=== PATIENT | female | born 1985 | race Caucasian/White ===

== ENCOUNTER 2019-06-03 15:22 | Emergency (ER) | payer SELFPAY ==
[2019-06-03 15:26] VITALS: BP 114/59; PULSE 82; RESP 16; TEMP 36.6; O2SAT 100
--- NOTE | 2019-06-03 15:41 | ED.GENADUL_ITS ---
Discharge Plan Discharge Details Chief Complaint: DentalOral Primary Care Provider: Gary Javier ED Provider: Ken Henley Home Meds and New Rx's Prescriptions: No Action methylphenidate HCl [Ritalin] 20 MG tablet 20 mg PO TID RF: 0 buspirone 15 mg Tablet 15 mg PO TID RF: 0 Medical Decision Making 34-year-old female with right lower dental pain, poor dentition, history of dental infections. She presents from home and is afebrile. She has tenderness to the right lower to bicuspid teeth. There is no evidence of buccal or lingual fluctuance. Patient given an inferior alveolar dental block, placed on penicillin, given tramadol as well for pain. She will follow-up with [facility]. She understands homecare as well as return precautions HPI General Mode of arrival: ambulatory . Date/Time Provider Initiated Documentation: 06/03/19 15:26 . Limitations to Documentation: no limitations . Information obtained by: patient . History of Present Illness 34 year old F presents to the emergency department with the chief complaint of Right lower tooth pain for 3 days time, described as moderate, Quality is described as dull and constant, and is localized to the mouth. Patient reports no radiation. Patient started experiencing this day(s) No relieving factors improve symptom(s), No exacerbating factors reported . Patient notes denies fever/chills. Patient did receive the following treatments prior to arrival, other Related Data Home Medications Medication Instructions Recorded Confirmed methylphenidate HCl [Ritalin] 20 mg PO TID 02/14/16 06/03/19 buspirone 15 mg PO TID 06/03/19 06/03/19 Allergies Allergy/AdvReac Type Severity Reaction Status Date / Time cephalexin monohydrate AdvReac Unknown Nausea Unverified 06/03/19 15:32 [From Keflex] ibuprofen AdvReac Unknown GI Unverified 06/03/19 15:32 BLEEDING/VOMITIN propoxyphene napsylate AdvReac Unknown Nausea Unverified 06/03/19 15:32 [From Darvocet-N] clonazepam [From Klonopin] AdvReac Panic Unverified 06/03/19 15:32 attack General Stated Complaint: DentalOral DEDE: 4 Review of Systems Narrative: No drooling, change to voice, fever, vomiting, shortness of breath. [facility] Medical History ADHD (01/11/95) BMI 38.0-38.9,adult Depression with anxiety fya antibody k antibody Family History Mother Hyperlipidemia Father Alcohol abuse recovering Sister No problems noted. Brother No problems noted. Social History Smoking/Tobacco Use Status: Current every day Tobacco Type: cigarettes Alcohol Intake: current Alcohol Intake frequency: a few times a month Substance use type: does not use Do you feel safe at home: Yes Do you feel safe in your relationship?: Yes Exam Narrative Exam Narrative: GEN: awake, alert, oriented 3. Pleasant, well groomed, interactive. HEAD: Normocephalic, atraumatic ENT: Mucous membranes moist, oropharynx with poor dentition throughout. Right lower bicuspids tender without significant fluctuance or swelling, TMs clear bilaterally, External ear exam unremarkable EYES: PERRL, EOMI NECK: Full ROM, no CHUY, no menigismus CHEST/RESP: Nontender, clear to auscultation bilateral, no wheeze/rhonchi/rales CARDIOVASCULAR: RRR, no murmur, rub ria. 2+ Rad pulse bilateral EXT: Full ROM, no edema, no rash Neuro: Grossly normal neurologic exam, conversant, interactive. Psych: Speech fluent, thoughts congruent, affect normal Course Vital Signs Vital signs: Vital Signs Temperature 36.6 C 06/03/19 15:26 Pulse 82 06/03/19 15:26 Respiratory Rate 16 06/03/19 15:26 Blood Pressure 114/59 L 06/03/19 15:26 Pulse Oximetry 100 06/03/19 15:26 Temperature 36.6 C 06/03/19 15:26 Temperature Source Temporal Artery Scan 06/03/19 15:26 Pulse 82 06/03/19 15:26 Respiratory Rate 16 06/03/19 15:26 Respiratory Effort Non-Labored 06/03/19 15:31 Blood Pressure 114/59 L 06/03/19 15:26 Blood Pressure Position Sitting 06/03/19 15:26 Pulse Oximetry 100 06/03/19 15:26 Oxygen Delivery Method Room Air 06/03/19 15:26 Oxygen Flow Rate 0 06/03/19 15:26 Pain Level 4 06/03/19 15:26 Procedures Nerve Block Nerve Block 1: Local Anesthetic: Lidocaine 1% Side: right Intraoral Nerve Block: inferior alveolar Procedure Successful: Yes Patient Tolerated Procedure: well
[2019-06-03] MEDS: Penicillin V POTASSIUM 500 MG TAB, 4 TABS/BTL PO (15:53)
[2019-06-03] MEDS: Bupivacaine 0.5% Pres-Free 30 ML VIAL (15:55)
== END 2019-06-03 16:00 | disposition home or self-care (01) ==
LOC: ER 15:58
PROVIDERS: Emergency Provider Emergency Medicine; PCP Family Medicine
DX: K08.89 Other specified disorders of teeth and supporting structures (principal)
CPT/HCPCS: 64400

== ENCOUNTER 2020-05-31 14:33 | Emergency (ER) | payer MEDICARE, MEDICAID, SELFPAY ==
[2020-05-31 14:40] VITALS: BP 96/64; PULSE 118; TEMP 36.7; O2SAT 99
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
[2020-05-31] MEDS: Acetaminophen 500 MG TAB 1000 MG PO (15:19)
--- NOTE | 2020-05-31 15:38 | DI.RAD_ITS ---
EXAM: XR KNEE RT 4V AP,LAT,LUNA,PAT CLINICAL HISTORY: lateral knee injury with medial pain TECHNIQUE: Four views COMPARISON: No exams were available for comparison FINDINGS: There is no evidence of fracture and there is no prominent joint effusion. There are no osteochondra l defects in the femoral condyles. Fibular head and neck appear unremarkable, given the history stat ed here. The bone density appears age appropriate. No osseous lesions. IMPRESSION: No fracture or joint effusion evident RADIATION DOSE DELIVERED: Four views total DLP
--- NOTE | 2020-05-31 16:04 | DI.VRAD_ITS ---
PROCEDURE INFORMATION: Exam: XR Left Knee Exam date and time: 05/31/2020 3:04 PM Age: 35 years old Clinical indication: Injury or trauma; Other: PT states pain/injury after playing with nephew; Blunt trauma; Knee; Right TECHNIQUE: Imaging protocol: XR Left knee. Views: 4 or more views. COMPARISON: No relevant prior studies available. FINDINGS: Bones/joints: Normal mineralization and alignment. No fracture, degenerative spur, osseous erosion, joint effusion, joint body or other deformity. Soft tissues: Normal. IMPRESSION: Normal. Dictated and Authenticated by: Jeb Benavidez MD. Ordering:MASON Guillory MD
[2020-05-31 16:21] VITALS: BP 104/70; PULSE 90; RESP 18; TEMP 36.6; O2SAT 100
== END 2020-05-31 16:36 | disposition home or self-care (01) ==
PROVIDERS: Emergency Provider Physician Assistant; PCP Nurse Practitioner Family
DX: S83.411A Sprain of medial collateral ligament of right knee, initial encounter (principal); X50.9XXA Other and unspecified overexertion or strenuous movements or postures, initial encounter; Y93.83 Activity, rough housing and horseplay
CPT/HCPCS: 29505; 81025; 99283; 73564; E0114; L1810

== ENCOUNTER 2020-10-20 15:57 | Outpatient (REF) | payer MEDICARE, MEDICAID, SELFPAY ==
--- NOTE | 2020-10-20 15:35 | VUL_PTH ---
PATIENT: Radha Hein LOC: [facility] U#:[id number] AGE/SX: 35/F ROOM: RE10/20/[address]: Zandra Berry DO : 1985 BED: DIS: 10/20/2020 SPEC #: [id number] RECD: 10/20/20 17:30 STATUS: [place] REQ #: [id number] MAURO: 10/20/20 15:[address]: Zandra Berry DEPT: Surgical Specimen RECD BY: Duyen Ramires ENTERED: 10/20/20 17:30 SP TYPE: VUL OTHR DR: Pily Lacy Tissues: 1 - VULVA BIOPSY Procedures: GROSS AND MICRO LEVEL 4 Comments: [id number]
== END 2020-10-20 15:58 | disposition home or self-care (01) ==
LOC: LBN 15:57
PROVIDERS: PCP Nurse Practitioner Family; Visit Provider Obstetrics & Gynecology
DX: A63.0 Anogenital (venereal) warts (principal); N90.89 Other specified noninflammatory disorders of vulva and perineum
CPT/HCPCS: 88305

== ENCOUNTER → 2021-08-30 13:39 | Outpatient (BNVA) | payer MEDICARE, MEDICAID, SELFPAY | PROVIDERS: PCP Nurse Practitioner Family; Referring Provider Nurse Practitioner Family; Visit Provider Psychiatry & Neurology Neurology | DX: R40.4 Transient alteration of awareness (principal); Z60.9 Problem related to social environment, unspecified | CPT/HCPCS: 99215 ==

== ENCOUNTER → 2021-10-11 08:20 | Outpatient (BNVA) | payer MEDICARE, MEDICAID, SELFPAY | PROVIDERS: PCP Nurse Practitioner Family; Referring Provider Nurse Practitioner Family; Visit Provider Psychiatry & Neurology Neurology | DX: R40.4 Transient alteration of awareness (principal); G43.109 Migraine with aura, not intractable, without status migrainosus; G43.009 Migraine without aura, not intractable, without status migrainosus; Z87.820 Personal history of traumatic brain injury | CPT/HCPCS: 99443 ==

== ENCOUNTER → 2021-11-22 07:34 | Outpatient (BNVA) | payer MEDICARE, MEDICAID, SELFPAY | PROVIDERS: PCP Nurse Practitioner Family; Referring Provider Nurse Practitioner Family; Visit Provider Psychiatry & Neurology Neurology | DX: R69 Illness, unspecified (principal) ==

== ENCOUNTER → 2021-11-23 07:26 | Outpatient (BNVA) | payer MEDICARE, MEDICAID, SELFPAY | PROVIDERS: PCP Nurse Practitioner Family; Referring Provider Nurse Practitioner Family; Visit Provider Psychiatry & Neurology Neurology | DX: R69 Illness, unspecified (principal) ==

== ENCOUNTER 2022-09-27 04:09 | Outpatient (CLI) | payer MEDICARE, MEDICAID, SELFPAY ==
--- NOTE | 2022-10-01 20:49 | PDOC.EEG_ITS ---
Neurology EEG EEG: [facility] Department of Neurology LONG-TERM AMBULATORY EEG REPORT Date of Recordin09/27/22 at 13:35:11 to 09/28/22 at 10:45:32 Interpreting Physician: Dr. Lisa Weiss PCP/Referring Provider: Pily Lacy [employer]LECT[employer] ENGINEERING [employer]RAFTSPERSON, Swetha Mahan NP Reason for study: Radha Hein is a 37 year-old woman with a history of spells for the last 10 years. Current Medications: Home Medications Medication Instructions Recorded Confirmed Type sumatriptan succinate 100 mg tablet See Rx Instructions PO .COMPLEX 10/11/21 10/11/21 Rx #12 tabs norelgestromin 150 mcg-e.estradiol 1 patch transdermal QWEEK #9 ea 11/03/21 Rx 35 mcg/24 hr weekly transderm patch (Xulane) METHODS: An 18-channel digitized electroencephalogram was recorded in the ambulatory setting with video. The 10/20 international system of electrode placement was used and bipolar and referential electrode montages were recorded. In addition to EEG the patient was monitored for EKG and by video. Activation procedures of photic stimulation and hyperventilation were performed if applicable. The duration of the recording was ~21 hours. DESCRIPTION OF EEG: Waking background activity: During maximal wakefulness a 10-Hz posterior background rhythm was present which was well-modulated, symmetrical, reactive to eye opening, and of moderate voltage. Faster frequencies were present in the bilateral anterior head regions. There was a normal anterior-posterior voltage gradient. Drowsy and sleeping background activity: During drowsiness, there was attenuation of the posterior dominant background rhythm and vertex waves. Normal stage II and III sleep was present with symmetrical sleep spindles, K- complexes, and vertex waves with slowing of the background rhythm to delta/theta frequencies. REM sleep manifested by rapid lateral eye movements and faster background rhythms was recorded. Arousal was unremarkable. Interictal abnormalities: none. Ictal findings: No events recorded. Activating Procedures: Photic stimulation was performed which produced a symmetrical posterior driving response at various flash frequencies. Hyperventilation was performed with moderate effort and produced no physiological slowing of the background. EKG: EKG revealed normal sinus rhythm. INTERPRETATION: This long-term EEG is normal during the awake and sleep states as well as during the activation procedures. PRIOR EEG: none CLINICAL CORRELATION: No focal regions of cerebral dysfunction or epileptiform activity was present. Epilepsy remains a clinical diagnosis and a normal EEG does not rule out epilepsy. Clinical correlation is advised. Lisa Weiss MD
== END 2022-09-27 04:10 | disposition home or self-care (01) ==
LOC: RT 04:09
PROVIDERS: PCP Nurse Practitioner Family; Visit Provider Psychiatry & Neurology Neurology
DX: R41.840 Attention and concentration deficit (principal); R68.89 Other general symptoms and signs
CPT/HCPCS: 94060; 94726; 94729; 95714; 95720

== ENCOUNTER 2023-08-21 11:20 | Emergency (ER) | payer MEDICARE, MEDICAID, SELFPAY ==
[2023-08-21 11:37] VITALS: BP 96/78; PULSE 90; RESP 17; O2SAT 98
--- NOTE | 2023-08-21 12:35 | ED.GENADUL_ITS ---
HPI General Date/Time Provider Initiated Documentation: 08/21/23 11:52 . HPI Narrative: 38 year-old female presents to ED today by POV/ambulating with a chief complaint of fall yesterday, to L knee with bruising. Quality described as pain with weight-bearing but able to walk, no radiation to knee buckling, numbness/tingling distal, gross deformity, hip pain. Severity is described as 5- 6/10. Palliating factors include nothing specific. Provoking factors include nothing specific- slipped on ice. Patient not anticoagulated. Related Data Home Medications Medication Instructions Recorded Confirmed norelgestromin 150 mcg-e.estradiol See Rx Instructions .Route 12/06/22 08/21/23 35 mcg/24 hr weekly transderm .COMPLEX #9 patches patch (Xulane) acetaminophen 500 mg capsule 1,000 mg (2 x 500 mg) PO Q6H PRN 08/21/23 acute pain #90 caps buspirone 10 mg tablet 10 mg BID 08/21/23 ibuprofen 400 mg tablet 400 mg PO Q6H PRN acute pain #90 08/21/23 tabs lamotrigine 150 mg tablet 150 mg PO DAILY 08/21/23 08/21/23 (Lamictal) Previous Rx's Medication Instructions Recorded norelgestromin 150 mcg-e.estradiol See Rx Instructions .Route 12/06/22 35 mcg/24 hr weekly transderm .COMPLEX #9 patches patch (Xulane) acetaminophen 500 mg capsule 1,000 mg (2 x 500 mg) PO Q6H PRN 08/21/23 acute pain #90 caps ibuprofen 400 mg tablet 400 mg PO Q6H PRN acute pain #90 08/21/23 tabs Allergies Allergy/AdvReac Type Severity Reaction Status Date / Time morphine Allergy Verified 10/11/21 12:51 cephalexin monohydrate AdvReac Unknown Nausea Verified 10/11/21 12:51 [From Keflex] ibuprofen AdvReac Unknown GI Verified 10/11/21 12:51 BLEEDING/VOMITIN propoxyphene napsylate AdvReac Unknown Nausea Verified 10/11/21 12:51 [From Darvocet-N] clonazepam [From Klonopin] AdvReac Panic Verified 10/11/21 12:51 attack fluoxetine [From Prozac] AdvReac uncontrolable Verified 10/11/21 12:51 rage General Stated Complaint: Orthopedic DEDE: 4 Review of Systems All systems reviewed & are unremarkable except as noted in HPI and below Exam Narrative Exam Narrative: GENERAL APPEARANCE: Well-nourished, non-toxic, awake and alert, atraumatic, no acute distress. SKIN: Warm, pink, dry, intact, without rashes/lesions/ulcerations. HEAD: Normocephalic, atraumatic, normal hair distribution for gender/age. EYES: Pupils PERRLA, EOMs intact without nystagmus, normal conjunctiva, no exudates on lids/lashes. ENT: Nares patent, no circumoral cyanosis, no facial swelling NECK: Supple, trachea midline, painless cervical ROM. LUNGS/CHEST: Non-labored respirations, normal A/P diameter, symmetrical expansion, no chest wall deformity HEART (CV/PV): No peripheral edema, no JVD. ABDOMEN: Soft, non-distended, no guarding. MSK: Normal ROM, no swelling/deformity to bilateral UEs or LEs, moving all extremities without weakness, no cyanosis, spine midline without tenderness, normal curvature. L LE: Mild swelling to the left knee, some bruising diffusely to the knee without crepitus, patella mobile, tib-fib stable, femur stable, Abelino negative, no laxity with varus valgus forces, nontolerant of Abelino NEURO: Mental Status AAOx4 - alert to person, place, time, events No facial droop, no forehead involvement. Motor: No focal weakness - strength 5/5 in bilateral UEs and LEs, proximal and distal, symmetric. Sensory: sensation intact to light touch globally. Gait normal: patient ambulated without ataxia into ED room. PSYCH: euthymic, cooperative, pleasant, appropriate speech Course Vital Signs Vital signs: Vital Signs Pulse 90 08/21/23 11:37 Respiratory Rate 17 08/21/23 11:37 Blood Pressure 96/78 L 08/21/23 11:37 Pulse Oximetry 98 08/21/23 11:37 Temperature Source Oral 08/21/23 11:37 Pulse 90 08/21/23 11:37 Respiratory Rate 17 08/21/23 11:37 Respiratory Effort Normal, Non-Labored 08/21/23 11:45 Blood Pressure 96/78 L 08/21/23 11:37 Blood Pressure Position Supine 08/21/23 11:37 Pulse Oximetry 98 08/21/23 11:37 Oxygen Delivery Method Room Air 08/21/23 11:37 Oxygen Flow Rate 0 08/21/23 11:37 Lab/Test Results Lab/Test Results: POC- Test(urine) Negative Medical Decision Making This dictation utilizes [id number] dictation software and may contain unedited grammatical errors. 38 y/o F presents to ED today with a chief complaint of fall last night, slipped on the ice with impact to L knee, R foot dominant, endorses swelling and bruising. Patient is able to weight-bear, not feeling instability. Patients' medical history: noncontributory. Family and social history: noncontributory. Pertinent exam findings / vital signs include L LE: Mild swelling to the left knee, some bruising diffusely to the knee without crepitus, patella mobile, tib- fib stable, femur stable, Abelino negative, no laxity with varus valgus forces, nontolerant of Abelino. Differential / pathologies of concern include fracture, sprain/strain, internal derangement of left knee, contusion. Diagnostic studies of: -X-ray left knee 4 view-no acute fracture seen. Interventions of: -Provided knee brace and crutches as well as prescriptions for Tylenol and Motrin. ED Course/Assessment/Plan: Counseled the patient on RICE therapy and therapeutic dosing Tylenol and ibuprofen as well as following up with orthopedics for persistent pain past 2 weeks as internal knee injury could not be ruled out at this visit. Findings not consistent with fracture or neurovascular compromise. Disposition of contusion of left knee. Patient verbalized understanding of the plan and return to ED criteria and engaged in shared decision making. Medical Records Medical records reviewed: Yes I reviewed the patient's medical records. Imaging Data Radiologic Study: Attestation: I personally reviewed and interpreted this imaging study as follows: Imaging: X-Ray Radiologist's impression: EXAM: XR KNEE LT 4V AP,LAT,LUNA,PAT CLINICAL HISTORY: L knee pain. TECHNIQUE: 2D digital imaging was performed of the left knee. Five images were obtained. Merchant,AP, lateral and PA tunnel views were obtained. COMPARISON: No priors for comparison. FINDINGS: BONES: No acute fracture is present. No bony destructive lesion is seen. JOINTS: The knee is normally aligned. No joint effusion is seen. No loose body. SOFT TISSUE: Normal. IMPRESSION: No acute fracture or dislocation. Quality:SDOH Health Related Social Needs: No Data to Display PFSH All Active Problems (Updated 08/21/23 @ 13:16 by HEMA Pleitez) Contusion of left knee (Acute) Contraception (Acute) Migraine headache without aura (Acute) Migraine headache with aura (Acute) Chronic headache (Acute) Nonspecific paroxysmal spell (Acute) Contraception (Acute) 02/24/2021 Rx for Xulane E faxed. Patient encouraged to come to [facility] to discuss control options Complete miscarriage (Acute) 11/01/2027 first trimester. At [facility]. 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 No D&C required. High risk social situations (Acute) Anxiety (Acute) Depressed (Acute) Medical History ADHD (01/11/95) BMI 38.0-38.9,adult Cognitive developmental delay Concussion Depression with anxiety Exertional asthma Meningitis Scoliosis Spontaneous Surgical History S/P spinal surgery s/p Story nick Family History Mother Hyperlipidemia Seizures Mental health problem Alcohol abuse Substance abuse Father Alcohol abuse recovering Paternal Grandmother Cancer Social History Smoking/Tobacco Use Status: Current every day Tobacco Type: cigarettes Smoking packs per day: 0.5 Smoking cigarettes per day: 10.0 Smoking risk assessment performed?: Yes Alcohol Intake: current Alcohol Intake frequency: a few times a month Drug use: Daily Substance use type: does not use and marijuana Household members: none Housing: house Number of Children: 6 current occupation: Unemployed Do you feel safe at home: Yes Do you feel safe in your relationship?: Yes Discharge Plan Disposition Patient Disposition: Home Discharge Details Clinical Impression: Contusion of left knee Primary Care Provider: Pily Lacy ED Provider: Hilton Hyman Home Meds and New Rx's Prescriptions: New acetaminophen 500 mg capsule 1,000 mg PO Q6H PRN (Reason: acute pain) Qty: 90 0RF ibuprofen 400 mg tablet 400 mg PO Q6H PRN (Reason: acute pain) Qty: 90 0RF Continued norelgestromin-ethin.estradiol [Xulane] 150-35 mcg/24 hr patch weekly See Rx Instructions .ROUTE .COMPLEX Qty: 9 5RF Dose Instruction: UNWRAP AND APPLY 1 PATCH TO SKIN EVERY WEEK FOR 3 WEEKS OF A 4 WEEK CYCLE Rx Instructions: UNWRAP AND APPLY 1 PATCH TO SKIN EVERY WEEK FOR 3 WEEKS OF A 4 WEEK CYCLE lamotrigine [Lamictal] 150 mg tablet 150 mg PO DAILY buspirone 10 mg tablet 10 mg BID Patient Comments: TAKE 1 TABLET BY MOUTH TWICE DAILY Discharge Instructions Instructions: Contusion in Adults (ED) Additional Instructions: You were seen in the emergency department for the contusion and bruising and fall to your left knee, there is no fracture seen on x-ray, this does not preclude they do not have an internal knee injury to a ligament or the meniscus. Regardless of possible internal knee injury you need to perform rest, ice, compression and elevation and take therapeutic dosings of Tylenol and ibuprofen and reevaluate yourself in about a week. Please use therapeutic dosing of Tylenol (acetamenophen) & Advil (ibuprofen) in an alternating fashion as follows: Take 1000mg of Tylenol every 6 hours without missing doses- that is 4 times per day. Custodial in between the Tylenol dosings, take 400-600mg of Advil also on a 6 hour schedule, that is also 4 times per day. The daily maximum dosing of Tylenol is 4000mg, and the daily maximum dosing of Advil is 2400mg. This is safe to do for weeks. Please note that some common cold medications & prescription pain medications may contain acetamenophen and you need to read OTC drug labels and factor that in to maximum daily dosings. I sent prescriptions for Tylenol and Motrin to your pharmacy, please use the crutches and knee brace as needed, if you continue to have pain past 1 to 2 weeks please try to follow-up with orthopedics for specialist evaluation. Referrals: Pily Lacy [Primary Care Provider] -
--- NOTE | 2023-08-21 12:41 | DI.RAD_ITS ---
Exam(s) XR KNEE LT 4V AP,LAT,LUNA,PAT EXAM: XR KNEE LT 4V AP,LAT,LUNA,PAT CLINICAL HISTORY: L knee pain. TECHNIQUE: 2D digital imaging was performed of the left knee. Five images were obtained. Merchant, AP, lateral and PA tunnel views were obtained. COMPARISON: No priors for comparison. FINDINGS: BONES: No acute fracture is present. No bony destructive lesion is seen. JOINTS: The knee is normally aligned. No joint effusion is seen. No loose body. SOFT TISSUE: Normal. IMPRESSION: No acute fracture or dislocation. DATA REPOSITORY: RADIATION DOSE DELIVERED:
[2023-08-21] MEDS: Acetaminophen 500 MG TAB 1000 MG PO (13:16)
[2023-08-21] MEDS: Ondansetron O.D.T. 4 MG TABEF PO (13:16)
[2023-08-21] MEDS: Ketorolac 10 MG TAB PO (13:16)
== END 2023-08-21 13:38 | disposition home or self-care (01) ==
PROVIDERS: Emergency Provider Physician Assistant; PCP Nurse Practitioner Family
DX: S80.02XA Contusion of left knee, initial encounter (principal); W00.0XXA Fall on same level due to ice and snow, initial encounter; Y93.01 Activity, walking, marching and hiking
CPT/HCPCS: 81025; 99284; 73564; 99283

== ENCOUNTER 2023-10-01 20:28 | Emergency (ER) | payer MEDICARE, MEDICAID, SELFPAY ==
[2023-10-01 20:38] VITALS: BP 126/54; PULSE 101; RESP 20; TEMP 36.6; O2SAT 97
--- NOTE | 2023-10-01 20:51 | W.ED.GENAD ---
Discharge Plan Disposition Patient Disposition: Home Condition: Stable Discharge Details Clinical Impression: Diarrhea Primary Care Provider: Velia Bagley ED Provider: Hilton Hyman Home Meds and New Rx's Prescriptions: New azithromycin 500 mg tablet 500 mg PO DAILY 3 Days Qty: 3 0RF Continued norelgestromin-ethin.estradiol [Xulane] 150-35 mcg/24 hr patch weekly See Rx Instructions .ROUTE .COMPLEX Qty: 9 5RF Dose Instruction: UNWRAP AND APPLY 1 PATCH TO SKIN EVERY WEEK FOR 3 WEEKS OF A 4 WEEK CYCLE Rx Instructions: UNWRAP AND APPLY 1 PATCH TO SKIN EVERY WEEK FOR 3 WEEKS OF A 4 WEEK CYCLE lamotrigine [Lamictal] 150 mg tablet 150 mg PO DAILY buspirone 10 mg tablet 10 mg BID Patient Comments: TAKE 1 TABLET BY MOUTH TWICE DAILY acetaminophen 500 mg capsule 1,000 mg PO Q6H PRN (Reason: acute pain) Qty: 90 0RF ibuprofen 400 mg tablet 400 mg PO Q6H PRN (Reason: acute pain) Qty: 90 0RF Discharge Instructions Instructions: Azithromycin (By mouth), Potassium Content of Foods List (ED), Acute Diarrhea (ED), Hypomagnesemia (ED) Additional Instructions: You were seen in the emergency department for your acute diarrhea for the past 6 days. Your laboratory workup shows no evidence for sepsis or systemic infection. It is reasonable to treat you with azithromycin for possible bacterial diarrhea. I have sent your prescription for antibiotics to [facility] in [place]. You had a mildly low potassium as well as magnesium likely due to your diarrhea but these should normalize with resolution of diarrhea and normal p.o. intake, make sure you are at home vitamin supplements contain some magnesium and potassium. Please return to the ER for any profound weakness, further GI losses, progressive dark or black or stools, developing fever despite treatment. Referrals: Velia Bagley [Primary Care Provider] - HPI General Date/Time Provider Initiated Documentation: 10/01/23 20:36. HPI Narrative: 38 year-old male presents to ED today by POV/ambulating with a chief complaint of diffuse abdominal cramping, diarrhea with onset 6 days ago. Quality described as intermittent abdominal cramping, mild nausea, no radiation to fever, vomiting, focal abdominal pain, shortness of breath, flank pain, dysuria- patient states she may have had one bout of very dark stool. Severity is described as 6-7/10. Palliating factors include nothing specific- no Imodium attempted. Provoking factors include possibly exacerbated by having some chicken. Patient not anticoagulated. Related Data Home Medications Medication Instructions Recorded Confirmed norelgestromin 150 mcg-e.estradiol See Rx Instructions .Route 12/06/22 08/21/23 35 mcg/24 hr weekly transderm .COMPLEX #9 patches patch (Xulane) acetaminophen 500 mg capsule 1,000 mg (2 x 500 mg) PO Q6H PRN 08/21/23 acute pain #90 caps buspirone 10 mg tablet 10 mg BID 08/21/23 ibuprofen 400 mg tablet 400 mg PO Q6H PRN acute pain #90 08/21/23 tabs lamotrigine 150 mg tablet 150 mg PO DAILY 08/21/23 08/21/23 (Lamictal) azithromycin 500 mg tablet 500 mg PO DAILY diarrhea 3 days #3 10/01/23 tabs Previous Rx's Medication Instructions Recorded norelgestromin 150 mcg-e.estradiol See Rx Instructions .Route 12/06/22 35 mcg/24 hr weekly transderm .COMPLEX #9 patches patch (Xulane) acetaminophen 500 mg capsule 1,000 mg (2 x 500 mg) PO Q6H PRN 08/21/23 acute pain #90 caps ibuprofen 400 mg tablet 400 mg PO Q6H PRN acute pain #90 08/21/23 tabs azithromycin 500 mg tablet 500 mg PO DAILY diarrhea 3 days #3 10/01/23 tabs Allergies Allergy/AdvReac Type Severity Reaction Status Date / Time morphine Allergy Verified 10/11/21 12:51 cephalexin monohydrate AdvReac Unknown Nausea Verified 10/11/21 12:51 [From Keflex] ibuprofen AdvReac Unknown GI Verified 10/11/21 12:51 BLEEDING/VOMITIN propoxyphene napsylate AdvReac Unknown Nausea Verified 10/11/21 12:51 [From Darvocet-N] clonazepam [From Klonopin] AdvReac Panic Verified 10/11/21 12:51 attack fluoxetine [From Prozac] AdvReac uncontrolable Verified 10/11/21 12:51 rage General Stated Complaint: Nausea/Vomit/Diar DEDE: 3 Review of Systems All systems reviewed & are unremarkable except as noted in HPI and below Exam Narrative Exam Narrative: GENERAL APPEARANCE: Well-nourished, non-toxic, awake and alert, atraumatic, no acute distress. SKIN: Warm, pink, dry, intact, without rashes/lesions/ulcerations. HEAD: Normocephalic, atraumatic, normal hair distribution for gender/age. EYES: Pupils PERRLA, EOMs intact without nystagmus, normal conjunctiva, no exudates on lids/lashes. ENT: Nares patent, no circumoral cyanosis, no facial swelling NECK: Supple, trachea midline, painless cervical ROM. LUNGS/CHEST: Non-labored respirations, normal A/P diameter, symmetrical expansion, no chest wall deformity HEART (CV/PV): Regular rate, R radial pulse 2+, no peripheral edema, no JVD. ABDOMEN: Normoactive bowel sounds, soft, non-distended, no guarding, no tenderness. MSK: Normal ROM, no swelling/deformity to bilateral UEs or LEs, moving all extremities without weakness, no cyanosis, spine midline without tenderness, normal curvature. NEURO: Mental Status AAOx4 - alert to person, place, time, events No facial droop, no forehead involvement. Motor: No focal weakness - strength 5/5 in bilateral UEs and LEs, proximal and distal, symmetric. Sensory: sensation intact to light touch globally. Gait normal: patient ambulated without ataxia into ED room. PSYCH: euthymic, cooperative, pleasant, appropriate speech Course Vital Signs Vital signs: Vital Signs Temperature 36.6 C 10/01/23 20:38 Pulse 101 H 10/01/23 20:38 Respiratory Rate 20 10/01/23 20:38 Blood Pressure 126/54 L 10/01/23 20:38 Pulse Oximetry 97 10/01/23 20:38 Temperature 36.6 C 10/01/23 20:38 Pulse 101 H 10/01/23 20:38 Respiratory Rate 20 10/01/23 20:38 Respiratory Effort Normal 10/01/23 20:45 Blood Pressure 126/54 L 10/01/23 20:38 Pulse Oximetry 97 10/01/23 20:38 Oxygen Delivery Method Room Air 10/01/23 20:38 Oxygen Flow Rate 0 10/01/23 20:38 Medical Decision Making This dictation utilizes [id number] dictation software and may contain unedited grammatical errors. 38 y/o F presents to ED today with a chief complaint of diarrhea for 6 days- no focal abdominal pain, denies fever, denies vomiting, has gotten progressively more liquid-like from loose stool, questions isolated dark stool, did have partial resolution then biphasic worsening. Patients' medical history: history of D&C. Family and social history: noncontributory. No recent antibiotic exposure Pertinent exam findings / vital signs include no focal abdominal tenderness, benign cardiopulmonary status, neuro intact, nontoxic. Differential / pathologies of concern include enteritis/colitis, infectious diarrhea, GI Bleeding, unlikely sepsis. Diagnostic studies of: -CBC, CMP, CRP/ESR, Lactate, Lipase, Mg++, Procalcitonin, UA. -lactate neg -CBC benign -CMP mild hypo-K+ -mild hypo-Mg++ -Lipase wnl -Procalcitonin neg Interventions of: -PO Magnesium, PO Potassium, 500mg Azithromycin. ED Course/Assessment/Plan: Patient presents with diarrhea for 6 days, did have a biphasic onset, reasonable to treat empirically for infectious diarrhea. No signs of sepsis, no leukocytosis, only mild hypomagnesemia and hypokalemia that would normalize with good p.o. intake. Provided supplementation here by p.o electrolytes as well as first dose of azithromycin sent and the rest of the sent to [facility] in [place]. Counseled the patient on strict return criteria for any failure to improve with treatment especially with further significant GI losses and any profound weakness, initiation of vomiting. Findings not consistent with GI bleeding or hemorrhage, anemia is not found on laboratory workup, there is no evidence of sepsis with a normal lactate and procalcitonin, only mild elevation of CRP, mild electrolyte disturbances likely due to GI losses. Disposition of Diarrhea. Patient verbalized understanding of the plan and return to ED criteria and engaged in shared decision making. Medical Records Medical records reviewed: Yes I reviewed the patient's medical records. Lab Data Lab results reviewed: Yes I reviewed the patient's lab results. Labs: Laboratory Tests Range/Units 10/01/23 10/01/23 21:02 21:07 WBC (4.4-10.8) 10^3/uL 8.39 RBC (3.93-5.22) 10^6/uL 4.01 Hgb (11.2-15.7) g/dL 13.2 Hct (36.0-46.0) % 38.4 MCV (80-95) fL 96 H MCH (27.0-33.0) pg 32.9 MCHC (32.0-36.0) % 34.4 RDW (11.7-14.6) % 12.4 Plt Count (130-400) 10^3/uL 215 MPV (8.0-11.0) fL 9.7 Immature Gran % 0.2 Neutrophils % 69.8 Lymphocytes % 20.0 Monocytes % 8.3 Eosinophils % 1.3 Basophils % 0.4 Nucleated RBC % (0.0-0.3) % 0.0 Absolute Neutrophils (1.2-6.7) 10^3/uL 5.85 Absolute Lymphocytes (1.2-3.4) 10^3/uL 1.68 Absolute Monocytes (0.1-0.8) 10^3/uL 0.70 Absolute Eosinophils (0.0-0.7) 10^3/uL 0.11 Absolute Basophils (0.0-0.2) 10^3/uL 0.03 ESR (0-20) mm/hr 18 VBG Lactate (0.6-1.4) mmol/L 1.1 Sodium (136-145) mmol/L 145 Potassium (3.5-5.1) mmol/L 3.4 L Chloride (98-107) mmol/L 110 H Carbon Dioxide (21.0-32.0) mmol/L 20.5 L Anion Gap (3-11) mmol/L 14.5 H BUN (7-18) mg/dL 11 Creatinine (0.55-1.02) mg/dL 0.7 Est GFR (CKD-EPI 2020) (mL/min/1.73m2) 114.16 Glucose (74-106) mg/dL 95 Calcium (8.5-10.1) mg/dL 8.6 Magnesium (1.8-2.4) mg/dL 1.7 L Total Bilirubin (0.2-1.0) mg/dL 0.5 AST (15-37) U/L 18 ALT (14-59) U/L 36 Alkaline Phosphatase (46-116) U/L 81 C-Reactive Protein (<or=0.5) mg/dL 1.82 H Total Protein (6.4-8.2) g/dL 7.3 Albumin (3.4-5.0) g/dL 3.4 Lipase (16-77) U/L 30 Procalcitonin ng/mL < 0.1 Urine Color (Yellow) Yellow Urine Clarity (Clear) Clear Urine pH (5-8) 5.5 Ur Specific [place] (1.005-1.025) >= 1.030 H Urine Protein (Neg-Trace) mg/dL 30 H Urine Ketones (Negative) mg/dL Negative Urine Blood (Negative) Trace-lysed H Urine Nitrite (Negative) Negative Urine Bilirubin (Negative) Negative Urine Urobilinogen (Up to 0.2) mg/dL 0.2 Ur Leukocyte Esterase (Negative) Negative Urine RBC (0-2) HPF 3-5 H Urine WBC (0-5) HPF 0-2 Ur Epithelial Cells (Negative) HPF Many Urine Crystals (Negative) HPF Negative Urine Bacteria (Negative) HPF Moderate Urine Mucus (Negative) Heavy Ur Culture Indicated? No/Sq. Contamination Urine Glucose (Negative) mg/dL Negative Quality:SDOH Health Related Social Needs: No Data to Display PFSH All Active Problems (Updated 10/01/23 @ 21:39 by HEMA Pleitez) Diarrhea (Acute) Contraception (Acute) Migraine headache without aura (Acute) Migraine headache with aura (Acute) Chronic headache (Acute) Nonspecific paroxysmal spell (Acute) Contraception (Acute) 02/24/2021 Rx for Xulane E faxed. Patient encouraged to come to [facility] to discuss control options Complete miscarriage (Acute) 11/01/2027 first trimester. At [facility]. 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 No D&C required. High risk social situations (Acute) Anxiety (Acute) Depressed (Acute) Medical History ADHD (01/11/95) BMI 38.0-38.9,adult Cognitive developmental delay Concussion Depression with anxiety Exertional asthma Meningitis Scoliosis Spontaneous Surgical History S/P spinal surgery s/p Story nick Family History Mother Hyperlipidemia Seizures Mental health problem Alcohol abuse Substance abuse Father Alcohol abuse recovering Paternal Grandmother Cancer Social History Smoking/Tobacco Use Status: Current every day Tobacco Type: cigarettes Smoking packs per day: 0.5 Smoking cigarettes per day: 10.0 Smoking risk assessment performed?: Yes Alcohol Intake: current Alcohol Intake frequency: a few times a month Drug use: Daily Substance use type: does not use and marijuana Household members: none Housing: house Number of Children: 6 current occupation: Unemployed Do you feel safe at home: Yes Do you feel safe in your relationship?: Yes
[2023-10-01 21:09] LABS: Abs Immature Grans 0.02 10^3/uL (0.0-0.06); Absolute Basophil Count 0.03 10^3/uL (0.0-0.2); Absolute Eosinophil Count 0.11 10^3/uL (0.0-0.7); Absolute Lymphocyte Count 1.68 10^3/uL (1.2-3.4); Absolute Neutrophil Count 5.85 10^3/uL (1.2-6.7); Basophils % 0.4; Eosinophils % 1.3; HCT 38.4 % (36.0-46.0); HGB 13.2 g/dL (11.2-15.7); Immature Grans % 0.2; Lactate 1.1 mmol/L (0.6-1.4); MCH 32.9 pg (27.0-33.0); MCHC 34.4 % (32.0-36.0); MCV 96 fL (80-95); MPV 9.7 fL (8.0-11.0); Monocytes % 8.3; Neutrophils % 69.8; Platelet Count 215 10^3/uL (130-400); RBC 4.01 10^6/uL (3.93-5.22); RDW 12.4 % (11.7-14.6); RDW-SD 43.7 fL; WBC 8.39 10^3/uL (4.4-10.8)
[2023-10-01 21:13] LABS: ESR 18 mm/hr (0-20)
[2023-10-01 21:18] LABS: Bilirubin Negative (Negative); Blood Trace-lysed (Negative); Clarity Clear (Clear); Glucose Negative (Negative); Ketones Negative (Negative); Leukocyte Esterase Negative (Negative); Nitrite Negative (Negative); Specific Gravity >= 1.030 (1.005-1.025); Urobilinogen 0.2 mg/dL (Up to 0.2); pH 5.5 (5-8)
[2023-10-01 21:27] LABS: WBC 0-2 HPF (0-5)
[2023-10-01 21:28] LABS: ALT 36 U/L (14-59); AST 18 U/L (15-37); Albumin 3.4 g/dL (3.4-5.0); Alkaline Phosphatase 81 U/L (46-116); Anion Gap 14.5 mmol/L (3-11); BUN 11 mg/dL (7-18); Bilirubin, Total 0.5 mg/dL (0.2-1.0); C-Reactive Protein 1.82 mg/dL (<or=0.5); CO2 20.5 mmol/L (21.0-32.0); CREATININE 0.7 mg/dL (0.55-1.02); Calcium 8.6 mg/dL (8.5-10.1); Chloride 110 mmol/L (98-107); Estimated GFR 114.16 (mL/min/1.73m2); Glucose 95 mg/dL (74-106); Lipase 30 U/L (16-77); Magnesium 1.7 mg/dL (1.8-2.4); Potassium 3.4 mmol/L (3.5-5.1); Sodium 145 mmol/L (136-145); Total Protein 7.3 g/dL (6.4-8.2)
[2023-10-01 21:28] LABS: Bacteria Moderate HPF (Negative); C & S Indicated? No/Sq. Contamination; Crystals Negative HPF (Negative); Epithelial Cells Many HPF (Negative); Mucus Heavy (Negative)
[2023-10-01] MEDS: Magnesium Oxide 400 MG TAB PO (21:52)
[2023-10-01] MEDS: Azithromycin 250 MG TAB 500 MG PO (21:52)
[2023-10-01] MEDS: Potassium Chloride 20 MEQ TABCR 40 MEQ PO (21:52)
[2023-10-01 21:57] LABS: Procalcitonin < 0.1 ng/mL
== END 2023-10-01 21:55 | disposition home or self-care (01) ==
PROVIDERS: Emergency Provider Physician Assistant; PCP Nurse Practitioner Family
DX: R19.7 Diarrhea, unspecified (principal); R10.9 Unspecified abdominal pain; F17.210 Nicotine dependence, cigarettes, uncomplicated
CPT/HCPCS: 80053; 83690; 84145; 85652; 99283; 81003; 81015; 83605; 83735; 85025; 86140

== ENCOUNTER 2024-08-17 17:12 | Emergency (ER) | payer MEDICARE, MEDICAID, SELFPAY ==
[2024-08-17 17:17] VITALS: BP 133/70; PULSE 98; RESP 22; TEMP 36.3; O2SAT 98
[2024-08-17 17:22] VITALS: BP 133/70; PULSE 98; RESP 22; TEMP 36.3; O2SAT 98
--- NOTE | 2024-08-17 17:35 | W.ED.GENAD ---
Discharge Plan Disposition Patient Disposition: Home Condition: Good Discharge Details Clinical Impression: Viral respiratory illness Primary Care Provider: Velia Bagley ED Provider: Ani Jacques Home Meds and New Rx's Prescriptions: Continued norelgestromin-ethin.estradiol [Xulane] 150-35 mcg/24 hr patch weekly 1 patch transdermal Q7D Qty: 9 5RF lamotrigine 200 mg tablet 200 mg PO DAILY Patient Comments: TAKE ONE TABLET BY MOUTH AT BEDTIME buspirone 10 mg tablet 10 mg PO BID Patient Comments: TAKE 1 TABLET BY MOUTH TWICE DAILY acetaminophen 500 mg capsule 1,000 mg PO Q6H PRN (Reason: acute pain) Qty: 90 0RF ibuprofen 400 mg tablet 400 mg PO Q6H PRN (Reason: acute pain) Qty: 90 0RF Discharge Instructions Additional Instructions: Please give [facility] a call first thing Monday to schedule follow-up appointment. Your chest x-ray was negative, no signs of pneumonia at this time. Continue using your albuterol inhaler 4 puffs every 4-6 hours using spacer as needed for shortness of breath/wheezing. You may use the new mometasone inhaler 1 puff twice a day; this is a controller inhaler and should be used with the spacer as well. Your symptoms today are most consistent with a viral illness. Please stay well hydrated, drinking plenty of fluids throughout the day. Add in electrolyte drinks as well. Chicken soup is another good option, as it contains helpful salts. You may use ibuprofen 800 mg every 8 hours and tylenol 1000 mg every 8 hours as needed for fever /chills or body aches. Get plenty of rest. Practice good handwashing and wear a mask in public if you are coughing to avoid spreading illness to others. Return to emergency care if you develop difficulty breathing, chest pains, worsening of cough or fever after initial improvement, or if you are very worried and need to be rechecked again immediately. Referrals: Velia Bagley [Primary Care Provider] - [facility] General Date/Time Provider Initiated Documentation: 08/17/24 17:22. HPI Narrative: Radha is a 39 year old female who presents to the emergency department today for evaluation of productive cough accompanied by shortness of breath/wheeze, sore throat, body aches, decreased appetite/nausea. She reports symptoms started day before yesterday, shortness of breath has increased despite use of inhaler. She reports that couple weeks ago she got over a GI illness, but then was exposed to someone with respiratory symptoms a few days prior to onset of her symptoms. She is supposed to take a controller inhaler, but has run out. She denies recorded fevers, episodes of passing out, congestion, chest pain, vomiting, change in bowel or bladder function. She admits to smoking. Denies history of diabetes, immunocompromise, cardiac disease, or antibiotic resistant infections past medical history is significant for asthma, migraine headaches, anxiety/depression, bipolar, EtOH abuse, ADHD. Physical exam remarkable for increased work of breathing, patient has 2-3 word dyspnea. Diminished lung sounds throughout. Normal heart sounds. Moving all extremities. She is alert and oriented, appropriately answering questions. No cyanosis noted. D/dx includes but is not limited to: Viral illness, asthma exacerbation, pneumonia. No red flags concerning for serious systemic illness requiring blood work or cultures. Vital signs not concerning for sepsis. I independently interpreted the following tests: Chest x-ray unremarkable, no obvious infiltrates noted. This was confirmed by radiologist. COVID/flu negative. While in the emergency department, Radha received 2 DuoNebs with good improvement of symptoms. Dyspnea and wheezing has resolved. She now has easy work of breathing, says she is feeling significantly better. Tylenol given for chills. Overall workup today reassuring. Likely viral illness with asthma exacerbation. As patient has history of bipolar, will initiate inhaled corticosteroids and have patient continue with albuterol inhaler at home. Spacer provided. Reviewed discharge instructions with patient, including symptomatic management and red flags indicating need for return to emergency care. She says that she has not been seen by PCP recently, recommend close follow-up for reevaluation. Related Data Home Medications ?Medication ?Instructions ?Recorded ?Confirmed acetaminophen 500 mg capsule 1,000 mg (2 x 500 mg) PO Q6H PRN 08/21/23 08/17/24 acute pain #90 caps buspirone 10 mg tablet 10 mg PO BID 08/21/23 08/17/24 ibuprofen 400 mg tablet 400 mg PO Q6H PRN acute pain #90 08/21/23 08/17/24 tabs norelgestromin 150 mcg-e.estradiol 1 patch transdermal Q7D #9 02/05/24 08/17/24 35 mcg/24 hr weekly transderm multiple units patch (Xulane) lamotrigine 200 mg tablet 200 mg PO DAILY 08/17/24 08/17/24 Previous Rx's ?Medication ?Instructions ?Recorded acetaminophen 500 mg capsule 1,000 mg (2 x 500 mg) PO Q6H PRN 08/21/23 acute pain #90 caps ibuprofen 400 mg tablet 400 mg PO Q6H PRN acute pain #90 08/21/23 tabs norelgestromin 150 mcg-e.estradiol 1 patch transdermal Q7D #9 02/05/24 35 mcg/24 hr weekly transderm multiple units patch (Xulane) Allergies Allergy/AdvReac Type Severity Reaction Status Date / Time morphine Allergy Itching Verified 08/17/24 17:19 cephalexin monohydrate (From AdvReac Unknown Nausea Verified 08/17/24 17:19 Keflex) ibuprofen AdvReac Unknown GI Verified 08/17/24 17:19 BLEEDING/VOMITIN propoxyphene napsylate (From AdvReac Unknown Nausea Verified 08/17/24 17:19 Darvocet-N) clonazepam (From Klonopin) AdvReac Panic Verified 08/17/24 17:19 attack fluoxetine (From Prozac) AdvReac uncontrolable Verified 08/17/24 17:19 rage General Stated Complaint: RespSymp DEDE: 4 Review of Systems Narrative: see HPI Exam Const General: cooperative, healthy appearing, well developed and well groomed Orientation: alert and oriented x3 HENMT Head: normal to inspection General nose exam: external nose normal Mouth: oral mucosae normal Resp Effort & Inspection: cough, tachypneic and other (2-3 word dyspnea) Auscultation: wheezes Cardio Rate: regular rate Rhythm: regular rhythm Skin General skin exam: no rashes or lesions noted Neuro General: patient alert, patient oriented x3, tone normal and moves all extremities Cognition: normal cognition Speech: speech normal Course Vital Signs Vital signs: Vital Signs Temperature 36.3 C L 08/17/24 17:17 Pulse 98 H 08/17/24 17:17 Respiratory Rate 22 08/17/24 17:17 Blood Pressure 133/70 08/17/24 17:17 Pulse Oximetry 98 08/17/24 17:17 Temperature 36.3 C L 08/17/24 17:22 Temperature Source Oral 08/17/24 17:22 Pulse 98 H 08/17/24 17:22 Respiratory Rate 22 08/17/24 17:22 Respiratory Effort Normal, Non-Labored 08/17/24 17:32 Respiratory Depth Normal 08/17/24 17:32 Blood Pressure 133/70 08/17/24 17:22 Blood Pressure Position Sitting 08/17/24 17:22 Pulse Oximetry 98 08/17/24 17:22 Oxygen Delivery Method Room Air 08/17/24 17:22 Oxygen Flow Rate 0 08/17/24 17:22 Medical Decision Making Quality:SDOH Health Related Social Needs: No Data to Display PFSH All Active Problems (Updated 08/17/24 @ 19:22 by Ani Pat) Viral respiratory illness (Acute) Contraception (Acute) Migraine headache without aura (Acute) Migraine headache with aura (Acute) Chronic headache (Acute) Nonspecific paroxysmal spell (Acute) Contraception (Acute) 02/24/2021 Rx for Xulane E faxed. Patient encouraged to come to [facility] to discuss control options Complete miscarriage (Acute) 11/01/2027 first trimester. At [facility]. 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 No D&C required. High risk social situations (Acute) Anxiety (Acute) Depressed (Acute) Medical History ADHD (01/11/95) BMI 38.0-38.9,adult Cognitive developmental delay Concussion Depression with anxiety Exertional asthma Meningitis Scoliosis Spontaneous Surgical History S/P spinal surgery s/p Story nick Family History Mother Hyperlipidemia Seizures Mental health problem Alcohol abuse Substance abuse Father Alcohol abuse recovering Paternal Grandmother Cancer Social History Smoking/Tobacco Use Status: Current every day Tobacco Type: cigarettes Smoking packs per day: 0.5 Smoking cigarettes per day: 10.0 Smoking risk assessment performed?: Yes Alcohol Intake: current Alcohol Intake frequency: a few times a month Drug use: Daily Substance use type: does not use and marijuana Household members: none Housing: house Number of Children: 6 current occupation: Unemployed Do you feel safe at home: Yes Do you feel safe in your relationship?: Yes
[2024-08-17] MEDS: Ondansetron O.D.T. 4 MG TABEF PO (17:44)
[2024-08-17] MEDS: Albuterol/Ipratropium 3 ML UPD VIAL UPD ×2 (17:44→19:07)
--- NOTE | 2024-08-17 17:45 | DI.RAD_ITS ---
Exam(s) XR CHEST 2V PA LATERAL EXAM: XR CHEST 2V PA LATERAL CLINICAL HISTORY: cough, SOB. TECHNIQUE: 2D digital imaging was performed. COMPARISON: Prior chest x-ray 08/10/2009 FINDINGS: 2 views: Ten rods are again noted in the thoracic-lumbar spine Heart size upper normal and the mediastinum is not widened. Lungs are clear. No infiltrates nor pleural effusions. IMPRESSION: No acute pulmonary findings.Story rods again noted in the spine. DATA REPOSITORY: RADIATION DOSE DELIVERED:
--- OUTSIDE RECORDS SUMMARY | 2024-08-17 18:11 | XMS_ITS ---
Author Organization Unknown Address [address] [place] [address] [phone] Phone Care Team Providers [employer] Name Role Phone KAREN Briggs Attending Unavailable ERIC RAMOS Primary Unavailable Social History Type Status Start Date End Date Code Code Syst em Smoking History Current some day smoker [id number] Sex Female Medications Medication Start Date End Date Route Frequency Dose Code Code System Medication Instructions Home Meds Acetaminophen 500MG Oral Tablet 11/01/2018 Unknown ORAL 1000 MILLIGRAMS RxNorm TAKE 1000 MILLIGRAMS ORAL Ibuprofen 600MG Oral Tablet 11/01/2018 Unknown ORAL 600 MILLIGRAMS RxNorm TAKE 600 MILLIGRAMS ORAL WELLBUTRIN XL 300MG ORAL TABLET, EX 11/01/2018 Unknown ORAL DAILY 300 MILLIGRAMS RxNorm TAKE 300 MILLIGRAMS ORAL DAILY Hospital Discharge Instructions Should you have any questions prior to discharge, please contact a member of your healthcare team. If you have left the hospital and have any questions, please contact your primary care physician. Reason For Referral No Data Found Allergies and Adverse Reactions Allergy Substance Reaction Severity Start Date Concern Status Code Code System CEFAZOLIN Moderate Active 2180 RxNorm IBUPROFEN Moderate Active 5640 RxNorm KEFLEX NAUSEA AND VOMITING (SNOMED-CT: null) Moderate Active 264936 RxNorm PROPOXYPHENE HCL Moderate Active Propoxyphene hcl Moderate Active Plan of Treatment No Data Found Encounters Encounter Diagnosis Start Date Code Code Sys tem Refusal of treatment by patient 08/06/2021 [id number] SNOMED-CT Personal Care Team Section Performer Name Performer Role Active Date Inactive Da te
[2024-08-17 18:14] VITALS: PULSE 70; RESP 14; O2SAT 99
[2024-08-17 18:22] VITALS: PULSE 77; RESP 16; O2SAT 99
[2024-08-17] MEDS: Mometasone 220 MCG 14 DOSE INHALER 1 PUFF IH (19:08)
[2024-08-17] MEDS: Acetaminophen 325 MG TAB 1000 MG PO (19:08)
[2024-08-17] MEDS: Inhaler, Assist Device 1 EACH MC (19:08)
[2024-08-17 19:19] VITALS: TEMP 36.8
[2024-08-17 19:37] VITALS: PULSE 76; RESP 18; O2SAT 99
[2024-08-18] MEDS: Mometasone 220 MCG 14 DOSE INHALER 1 PUFF IH (13:12)
--- NOTE | 2024-08-18 13:13 | NUR.NOTE ---
Nursing Note: Pt returned with friend to the ED unsure of how to use the asmanex inhaler. States as she tried per instructions, nothing was coming out. Respiratory called to assist with inhaler teaching but noted that there were only 2 doses left in current inhaler. Recommendation to give pt a new inhaler for home use. Dr. Alfonso consulted and verbal order received for new inhaler, which was dispensed to patient here.
== END 2024-08-17 19:34 | disposition home or self-care (01) ==
PROVIDERS: Emergency Provider Nurse Practitioner Family; PCP Nurse Practitioner Family
DX: J98.8 Other specified respiratory disorders (principal); B97.89 Other viral agents as the cause of diseases classified elsewhere; F17.210 Nicotine dependence, cigarettes, uncomplicated
CPT/HCPCS: 94640; 99284; 71046; 99283; J7620

== ENCOUNTER 2024-08-18 12:40 | Emergency (ER) | payer MEDICARE, MEDICAID, SELFPAY ==
[2024-08-18 12:42] VITALS: BP 110/69; PULSE 86; RESP 20; TEMP 36.7; O2SAT 98
--- NOTE | 2024-08-18 12:45 | RT.EKG_ITS ---
APPROVED REPORT Exam: Resting ECG Reason for Exam: SOB, Difficulty Breathing Patient Location: E HR:78 bpm ECG Measurements Heart Rate 78 AXIS PA 149 P 32 QRSd 79 QRS 66 QT 377 T 63 QTc 428 Conclusion Sinus rhythm...normal P axis, V-rate 60- 99 Low voltage, precordial leads...precordial leads <1.0mV
--- NOTE | 2024-08-18 13:09 | W.ED.GENAD ---
Discharge Plan Disposition Patient Disposition: Home Condition: Stable Discharge Details Clinical Impression: Acute respiratory infection Primary Care Provider: Velia Bagley ED Provider: Uriel Alfonso Home Meds and New Rx's Prescriptions: New prednisone 20 mg tablet 60 mg PO DAILY 4 Days Qty: 12 0RF doxycycline hyclate 100 mg tablet 100 mg PO BID Qty: 14 0RF Continued norelgestromin-ethin.estradiol [Xulane] 150-35 mcg/24 hr patch weekly 1 patch transdermal Q7D Qty: 9 5RF lamotrigine 200 mg tablet 200 mg PO DAILY Patient Comments: TAKE ONE TABLET BY MOUTH AT BEDTIME buspirone 10 mg tablet 10 mg PO BID Patient Comments: TAKE 1 TABLET BY MOUTH TWICE DAILY acetaminophen 500 mg capsule 1,000 mg PO Q6H PRN (Reason: acute pain) Qty: 90 0RF ibuprofen 400 mg tablet 400 mg PO Q6H PRN (Reason: acute pain) Qty: 90 0RF Discharge Instructions Additional Instructions: Continue to use your inhalers Follow-up with your primary care provider if you are not improving this week If you feel more ill, have severe worsening shortness of breath or new symptoms such as persistent vomiting return to the emergency department for reevaluation HPI General Mode of arrival: ambulatory. Date/Time Provider Initiated Documentation: 08/18/24 12:49. Limitations to Documentation: no limitations. Information obtained by: patient. History of Present Illness 39 year old F presents to the emergency department with the chief complaint of cough and dyspnea, described as moderate, Patient started experiencing this day(s) (4) and it has been constant. No relieving factors improve symptom(s), No exacerbating factors reported . Patient notes shortness of breath; denies chest pain. Related Data Home Medications ?Medication ?Instructions ?Recorded ?Confirmed acetaminophen 500 mg capsule 1,000 mg (2 x 500 mg) PO Q6H PRN 08/21/23 08/18/24 acute pain #90 caps buspirone 10 mg tablet 10 mg PO BID 08/21/23 08/18/24 ibuprofen 400 mg tablet 400 mg PO Q6H PRN acute pain #90 08/21/23 08/18/24 tabs norelgestromin 150 mcg-e.estradiol 1 patch transdermal Q7D #9 02/05/24 08/18/24 35 mcg/24 hr weekly transderm multiple units patch (Xulane) lamotrigine 200 mg tablet 200 mg PO DAILY 08/17/24 08/18/24 doxycycline hyclate 100 mg tablet 100 mg PO BID #14 tabs 08/18/24 prednisone 20 mg tablet 60 mg (3 x 20 mg) PO DAILY 4 days 08/18/24 #12 tabs Previous Rx's ?Medication ?Instructions ?Recorded acetaminophen 500 mg capsule 1,000 mg (2 x 500 mg) PO Q6H PRN 08/21/23 acute pain #90 caps ibuprofen 400 mg tablet 400 mg PO Q6H PRN acute pain #90 08/21/23 tabs norelgestromin 150 mcg-e.estradiol 1 patch transdermal Q7D #9 02/05/24 35 mcg/24 hr weekly transderm multiple units patch (Xulane) doxycycline hyclate 100 mg tablet 100 mg PO BID #14 tabs 08/18/24 prednisone 20 mg tablet 60 mg (3 x 20 mg) PO DAILY 4 days 08/18/24 #12 tabs Allergies Allergy/AdvReac Type Severity Reaction Status Date / Time morphine Allergy Itching Verified 08/18/24 12:41 cephalexin monohydrate (From AdvReac Unknown Nausea Verified 08/18/24 12:41 Keflex) ibuprofen AdvReac Unknown GI Verified 08/18/24 12:41 BLEEDING/VOMITIN propoxyphene napsylate (From AdvReac Unknown Nausea Verified 08/18/24 12:41 Darvocet-N) clonazepam (From Klonopin) AdvReac Panic Verified 08/18/24 12:41 attack fluoxetine (From Prozac) AdvReac uncontrolable Verified 08/18/24 12:41 rage General Stated Complaint: RespSymp DEDE: 3 Review of Systems All systems reviewed & are unremarkable except as noted in HPI and below Constitutional Constitutional: Denies chills, Denies fever(s) and Denies weakness Cardiovascular Cardiovascular: Denies chest pain and Reports dyspnea Respiratory Respiratory: Reports cough and Reports dyspnea Gastrointestinal Gastrointestinal: Denies abdominal pain, Denies nausea and Denies vomiting Neurologic Neurologic: Denies weakness Exam Const General: no acute distress Orientation: alert HENMT Head: normal to inspection Ears: external ears normal General nose exam: external nose normal Mouth: moist mucous membranes Eyes General: appearance normal, both eyes and all related structures Neck Neck: normal visual inspection Resp Effort & Inspection: normal respiratory effort, able to speak in complete sentences and cough Auscultation: wheezes Cardio Rate: regular rate Skin General skin exam: no rashes or lesions noted Neuro General: patient alert and patient oriented x3 Extrem General: normal to inspection Psych Mental Status: mental status grossly normal Course Vital Signs Vital signs: Vital Signs Temperature 36.7 C 08/18/24 12:42 Pulse 86 08/18/24 12:42 Respiratory Rate 20 08/18/24 12:42 Blood Pressure 110/69 08/18/24 12:42 Pulse Oximetry 98 08/18/24 12:42 Temperature 36.7 C 08/18/24 12:42 Temperature Source Oral 08/18/24 12:42 Pulse 86 08/18/24 12:42 Respiratory Rate 20 08/18/24 12:42 Blood Pressure 110/69 08/18/24 12:42 Pulse Oximetry 98 08/18/24 12:42 Pain Level 6 08/18/24 12:42 Medical Decision Making 39-year-old female with a history of ADHD, reportedly has been diagnosed with asthma in the past comes in with continued shortness of breath and cough. She was seen yesterday and had lab work and x-ray which did not show any concerning findings. She says that she feels short of breath still so came here for evaluation. Patient is speaking in full sentences on exam. She has no calf tenderness. No JVD. She does have apical wheezing bilaterally. No hypoxia. I suspect asthma exacerbation, will recheck a Fluvid and give a DuoNeb and also treat with prednisone. She has no pleuritic chest pain, no evidence of DVT on exam and no hypoxia or tachycardia so I doubt PE. No chest pressure to suggest ACS and do not feel troponins indicated. Patient feels better and has improved lung sounds with no wheezing currently. Fluvid still negative. She has had symptoms for months without any significant change so I will prescribe doxycycline in case this is a developing bacterial illness. She is stable for discharge and will follow-up with her PCP if not improving and return precautions given Differential Diagnosis Differential Diagnosis: URI, COVID, flu ECG Data Attestation: I personally reviewed and interpreted this ECG (s) as follows: Prior ECG tracings: not available for review Interpretation: Sinus rhythm, rate of 78, MA 149, no STEMI Quality:SDOH Health Related Social Needs: No Data to Display PFSH All Active Problems (Updated 08/18/24 @ 14:18 by Uriel Alfonso MD) Acute respiratory infection (Acute) Viral respiratory illness (Acute) Contraception (Acute) Migraine headache without aura (Acute) Migraine headache with aura (Acute) Chronic headache (Acute) Nonspecific paroxysmal spell (Acute) Contraception (Acute) 02/24/2021 Rx for Xulane E faxed. Patient encouraged to come to [facility] to discuss control options Complete miscarriage (Acute) 11/01/2027 first trimester. At [facility]. 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 No D&C required. High risk social situations (Acute) Anxiety (Acute) Depressed (Acute) Medical History ADHD (01/11/95) BMI 38.0-38.9,adult Cognitive developmental delay Concussion Depression with anxiety Exertional asthma Meningitis Scoliosis Spontaneous Surgical History S/P spinal surgery s/p Story nick Family History Mother Hyperlipidemia Seizures Mental health problem Alcohol abuse Substance abuse Father Alcohol abuse recovering Paternal Grandmother Cancer Social History Smoking/Tobacco Use Status: Current every day Tobacco Type: cigarettes Smoking packs per day: 0.5 Smoking cigarettes per day: 10.0 Smoking risk assessment performed?: Yes Alcohol Intake: current Alcohol Intake frequency: a few times a month Drug use: Daily Substance use type: does not use and marijuana Household members: none Housing: house Number of Children: 6 current occupation: Unemployed Do you feel safe at home: Yes Do you feel safe in your relationship?: Yes
[2024-08-18 13:12] VITALS: PULSE 80; RESP 18; RESP 2; O2SAT 99
[2024-08-18] MEDS: predniSONE 20 MG TAB 60 MG PO (13:12)
[2024-08-18] MEDS: Albuterol/Ipratropium 3 ML UPD VIAL UPD (13:12)
[2024-08-18 14:01] LABS: COVID-19 PCR Negative (Negative); Influenza A PCR Negative (Negative); Influenza B PCR Negative (Negative); RSV PCR Negative (Negative)
[2024-08-18 14:03] LABS: Source Nasopharynx
[2024-08-18] MEDS: Doxycycline Hyclate 100 MG CAP PO (14:25)
[2024-08-18 14:26] VITALS: BP 105/64; PULSE 62; RESP 18; O2SAT 67
== END 2024-08-18 14:33 | disposition home or self-care (01) ==
PROVIDERS: Emergency Provider Emergency Medicine; PCP Nurse Practitioner Family
DX: J06.9 Acute upper respiratory infection, unspecified (principal); J45.909 Unspecified asthma, uncomplicated
CPT/HCPCS: 87637; 93005; 94640; 99285; 93010; 99284; J7512; J7620

== ENCOUNTER 2024-09-12 11:58 | Emergency (ER) | payer MEDICARE, MEDICAID, SELFPAY ==
[2024-09-12 12:11] VITALS: BP 104/62; PULSE 93; RESP 18; TEMP 36.8; O2SAT 97
--- NOTE | 2024-09-12 14:50 | DI.RAD_ITS ---
Exam(s) XR CHEST 2V PA LATERAL EXAM: XR CHEST 2V PA LATERAL CLINICAL HISTORY: cough. TECHNIQUE: 2D digital imaging was performed. COMPARISON: CR XR CHEST 2V PA LATERAL from 08/17/2024 FINDINGS: 2 views: Story rods are again noted in the thoracolumbar spine Heart size is normal. The mediastinum is not widened. Left lung is clear. There are very subtle increased interstitial markings in the right lung. No Ker lidia B lines. No pleural effusions. IMPRESSION: Very mild increased interstitial markings in the mid right lung zone. No pleural effusions. DATA REPOSITORY: RADIATION DOSE DELIVERED:
[2024-09-12] MEDS: Acetaminophen 325 MG TAB 650 MG PO (15:25)
[2024-09-12] MEDS: Albuterol/Ipratropium 3 ML UPD VIAL UPD (15:25)
--- NOTE | 2024-09-12 15:36 | ED.GENADUL_ITS ---
Discharge Plan Disposition Patient Disposition: Home Condition: Stable Discharge Details Clinical Impression: Pneumonia Primary Care Provider: Velia Bagley ED Provider: Carlos Cameron Home Meds and New Rx's Prescriptions: New amoxicillin-pot clavulanate 875-125 mg tablet 1 tab PO BID Qty: 9 0RF Continued lamotrigine 200 mg tablet 200 mg PO DAILY Patient Comments: TAKE ONE TABLET BY MOUTH AT BEDTIME buspirone 10 mg tablet 30 mg PO BID Patient Comments: TAKE 1 TABLET BY MOUTH TWICE DAILY acetaminophen 500 mg capsule 1,000 mg PO Q6H PRN (Reason: acute pain) Qty: 90 0RF ibuprofen 400 mg tablet 400 mg PO Q6H PRN (Reason: acute pain) Qty: 90 0RF Discharge Instructions Instructions: Pneumonia, Adult ED Additional Instructions: Please drink plenty of fluids and allow for plenty of rest. Use your albuterol inhaler with a spacer as prescribed for wheezing and shortness of breath. You were started on initial dose of antibiotic Augmentin today. Your next dose should be late tonight. Continue to take as prescribed and be sure to complete the full course. Please follow-up with your primary care physician. Call today to arrange timely follow-up next week. Return to the emergency department immediately for any worsening or new concerning symptoms. Referrals: Velia Bagley [Primary Care Provider] - Discharge Data Discharge Date/Time-TO BE ENTERED AT DEPARTURE: 09/12/24 16:36 HPI General Mode of arrival: ambulatory . Date/Time Provider Initiated Documentation: 09/12/24 12:18 . Limitations to Documentation: no limitations . Information obtained by: patient . HPI Narrative: HISTORY OF PRESENT ILLNESS 39-year-old female with malaise, cough, and painful inspiration since yesterday. History of asthma. Reports chest discomfort, body aches, and syncope with severe coughing. Symptoms began after an asthma-related illness. Experienced fatigue, barking cough at [id number] hours, urinary incontinence, chest and back pain, and abdominal pain from coughing. Mild rhinorrhea. Wheezing and crackles noted last night. Using Chloraseptic lozenges for relief. Inhaler used three times today without a spacer. Seen 2-3 weeks ago for respiratory issues; negative for influenza and COVID-19. Smoker with reduced intake due to symptoms. Flu and COVID vaccines not up-to-date. Related Data Home Medications ?Medication ?Instructions ?Recorded ?Confirmed acetaminophen 500 mg capsule 1,000 mg (2 x 500 mg) PO Q6H PRN 08/21/23 09/12/24 acute pain #90 caps buspirone 10 mg tablet 30 mg PO BID 08/21/23 09/12/24 ibuprofen 400 mg tablet 400 mg PO Q6H PRN acute pain #90 08/21/23 09/12/24 tabs lamotrigine 200 mg tablet 200 mg PO DAILY 08/17/24 09/12/24 amoxicillin 875 mg-potassium 1 tab PO BID #9 tabs 09/12/24 clavulanate 125 mg tablet Previous Rx's ?Medication ?Instructions ?Recorded acetaminophen 500 mg capsule 1,000 mg (2 x 500 mg) PO Q6H PRN 08/21/23 acute pain #90 caps ibuprofen 400 mg tablet 400 mg PO Q6H PRN acute pain #90 08/21/23 tabs amoxicillin 875 mg-potassium 1 tab PO BID #9 tabs 09/12/24 clavulanate 125 mg tablet Allergies Allergy/AdvReac Type Severity Reaction Status Date / Time morphine Allergy Itching Verified 09/12/24 12:18 cephalexin monohydrate (From AdvReac Unknown Nausea Verified 09/12/24 12:18 Keflex) ibuprofen AdvReac Unknown GI Verified 09/12/24 12:18 BLEEDING/VOMITIN propoxyphene napsylate (From AdvReac Unknown Nausea Verified 09/12/24 12:18 Darvocet-N) clonazepam (From Klonopin) AdvReac Panic Verified 09/12/24 12:18 attack fluoxetine (From Prozac) AdvReac uncontrolable Verified 09/12/24 12:18 rage General Stated Complaint: RespSymp DEDE: 3 Exam Narrative Exam Narrative: PHYSICAL EXAM General Appearance: No respiratory distress. Intermittently coughing. Vital signs: BP 104/62, pulse 93, O2 sat 97% on room air, RR 18, temp 36.8. HEENT: Throat normal, no exudate, erythema, or swelling. Respiratory: Crackles on left lung. Right lung clear. Cardiovascular: Heart regular rate and rhythm, no murmur, rub, or gallops. Skin: Warm and dry, no rash. Neurological: Normal. Extremity: No swelling, no calf tenderness Course Vital Signs Vital signs: Vital Signs Temperature 36.8 C 09/12/24 12:11 Pulse 93 H 09/12/24 12:11 Respiratory Rate 18 09/12/24 12:11 Blood Pressure 104/62 09/12/24 12:11 Pulse Oximetry 97 09/12/24 12:11 Temperature 36.8 C 09/12/24 12:11 Temperature Source Oral 09/12/24 12:11 Pulse 93 H 09/12/24 12:11 Respiratory Rate 18 09/12/24 12:11 Blood Pressure 104/62 09/12/24 12:11 Blood Pressure Position Sitting 09/12/24 12:11 Pulse Oximetry 97 09/12/24 12:11 Oxygen Delivery Method Room Air 09/12/24 12:11 Oxygen Flow Rate 0 09/12/24 12:11 Pain Level 5 09/12/24 12:11 Medical Decision Making ASSESSMENT AND PLAN Initial Assessment: 39-year-old female with a history of asthma presenting with severe cough, painful inspiration, and body aches. Physical exam reveals crackles on the left side of the lungs. Differential Diagnosis: - Pneumonia: Considered due to crackles on lung exam and progressive cough. Plan to initiate doxycycline. - Asthma exacerbation: Increased symptoms, advised to use spacer with inhaler. Administer nebulizer treatment. ED Course: - Nebulizer treatment administered. - Chest x-ray reviewed by radiology: Very mild increased interstitial markings in the mid right lung zone, no pleural effusions. - Flu and Covid testing negative. - Initiated treatment with Augmentin. - Provided Tylenol for body aches. Final Assessment: Patient with suspected early bacterial pneumonia and asthma exacerbation. Treatment initiated with Augmentin and nebulizer treatment. Provided Tylenol for body aches. Clinical Impression: - Suspected early bacterial pneumonia - Asthma exacerbation - Body aches Disposition: - Discharge - Follow-Up: Advised to follow up with primary care physician for further management. Patient Education: Advised on the use of spacer with inhaler and the importance of follow-up care. MDM Components Evaluation: - Number of Differential Diagnoses or Management Options: Pneumonia, Asthma exacerbation - Amount and Complexity of Data Reviewed: Chest x-ray, Flu and Covid testing - Risk of Complication and Morbidity or Mortality: Moderate risk due to underlying asthma and potential pneumonia. This document was written with the assistance of MANNY Son. The patient consented to its use. Quality:SDOH Health Related Social Needs: No Data to Display PFSH All Active Problems Pneumonia (Acute) Acute respiratory infection (Acute) Viral respiratory illness (Acute) Contraception (Acute) Migraine headache without aura (Acute) Migraine headache with aura (Acute) Chronic headache (Acute) Nonspecific paroxysmal spell (Acute) Contraception (Acute) 02/24/2021 Rx for Xulane E faxed. Patient encouraged to come to [facility] to discuss control options Complete miscarriage (Acute) 11/01/2027 first trimester. At [facility]. 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 No D&C required. High risk social situations (Acute) Anxiety (Acute) Depressed (Acute) Medical History Meningitis Scoliosis Cognitive developmental delay Concussion Spontaneous Exertional asthma ADHD (01/11/95) BMI 38.0-38.9,adult Depression with anxiety Surgical History S/P spinal surgery s/p Story nick Family History Mother Hyperlipidemia Seizures Mental health problem Alcohol abuse Substance abuse Father Alcohol abuse recovering Paternal Grandmother Cancer Social History Smoking/Tobacco Use Status: Current every day Tobacco Type: cigarettes Smoking packs per day: 0.5 Smoking cigarettes per day: 10.0 Smoking risk assessment performed?: Yes Alcohol Intake: current Alcohol Intake frequency: a few times a month Drug use: Daily Substance use type: does not use and marijuana Household members: none Housing: house Number of Children: 6 current occupation: Unemployed Do you feel safe at home: Yes Do you feel safe in your relationship?: Yes
[2024-09-12] MEDS: Amoxicillin 875/Clav. 125 TAB PO (16:08)
[2024-09-12 16:31] VITALS: BP 128/78; PULSE 87; RESP 15; TEMP 36.8; O2SAT 94
== END 2024-09-12 16:36 | disposition home or self-care (01) ==
PROVIDERS: Emergency Provider Student in an Organized Health Care Education/Training Program; PCP Nurse Practitioner Family
DX: J18.9 Pneumonia, unspecified organism (principal); F17.210 Nicotine dependence, cigarettes, uncomplicated
CPT/HCPCS: 94640; 99283; 71046; J7620

== ENCOUNTER 2024-09-14 17:02 | Emergency (ER) | payer MEDICARE, MEDICAID, SELFPAY ==
[2024-09-14 17:45] VITALS: BP 98/73; PULSE 84; RESP 15; TEMP 36.3; O2SAT 94
[2024-09-14 17:59] VITALS: BP 98/73; PULSE 84; RESP 15; TEMP 36.3; O2SAT 94
[2024-09-14 18:47] VITALS: BP 103/72; PULSE 68; RESP 16; O2SAT 97
--- NOTE | 2024-09-14 18:54 | W.ED.GENAD ---
Discharge Plan Disposition Patient Disposition: Home Condition: Stable Discharge Details Clinical Impression: Pneumonia Primary Care Provider: Velia Bagley ED Provider: Francisca Hallman Home Meds and New Rx's Prescriptions: New promethazine 6.25 mg/5 mL syrup 12.5 mg PO Q6H PRN (Reason: cough) Qty: 120 0RF prednisone 20 mg tablet 40 mg PO DAILY 4 Days Qty: 8 0RF benzonatate 100 mg capsule 100 mg PO TID PRN (Reason: cough) Qty: 30 0RF No Action lamotrigine 200 mg tablet 200 mg PO DAILY Patient Comments: TAKE ONE TABLET BY MOUTH AT BEDTIME amoxicillin-pot clavulanate 875-125 mg tablet 1 tab PO BID Qty: 9 0RF buspirone 10 mg tablet 30 mg PO BID Patient Comments: TAKE 1 TABLET BY MOUTH TWICE DAILY acetaminophen 500 mg capsule 1,000 mg PO Q6H PRN (Reason: acute pain) Qty: 90 0RF ibuprofen 400 mg tablet 400 mg PO Q6H PRN (Reason: acute pain) Qty: 90 0RF Discharge Instructions Additional Instructions: Continue the antibiotic as prescribed. Continue to use your albuterol inhaler to help with cough. Additional cough medications have been sent to the pharmacy to help with the symptoms. The Phenergan syrup will help with your cough and help you get a little bit of sleep. The steroids will help particularly because you are a smoker Please stay hydrated and drink lots of fluids, follow-up with your primary care provider. It may take several days for you to feel all the way better. HPI General Date/Time Provider Initiated Documentation: 09/14/24 18:00. Limitations to Documentation: no limitations. Information obtained by: patient and old records reviewed. HPI Narrative: 39-year-old female with past medical history including asthma, tobacco abuse, migraine headaches and recent diagnosis of pneumonia returns for reevaluation of symptoms. She reports that she is still feeling pretty terrible. She reports poor oral intake, persistent cough productive of mucus. States that she has been using her inhalers. Denies that she has missed any doses of her medication. She denies any vomiting. She has not measured a temperature at home but reports that she still has chills and subjective fever. Related Data Home Medications ?Medication ?Instructions ?Recorded ?Confirmed acetaminophen 500 mg capsule 1,000 mg (2 x 500 mg) PO Q6H PRN 08/21/23 09/14/24 acute pain #90 caps buspirone 10 mg tablet 30 mg PO BID 08/21/23 09/14/24 ibuprofen 400 mg tablet 400 mg PO Q6H PRN acute pain #90 08/21/23 09/14/24 tabs lamotrigine 200 mg tablet 200 mg PO DAILY 08/17/24 09/14/24 amoxicillin 875 mg-potassium 1 tab PO BID #9 tabs 09/12/24 09/14/24 clavulanate 125 mg tablet benzonatate 100 mg capsule 100 mg PO TID PRN cough #30 caps 09/14/24 prednisone 20 mg tablet 40 mg (2 x 20 mg) PO DAILY 4 days 09/14/24 #8 tabs promethazine 6.25 mg/5 mL oral 12.5 mg (10 mL) PO Q6H PRN cough 09/14/24 syrup #120 mL Previous Rx's ?Medication ?Instructions ?Recorded acetaminophen 500 mg capsule 1,000 mg (2 x 500 mg) PO Q6H PRN 08/21/23 acute pain #90 caps ibuprofen 400 mg tablet 400 mg PO Q6H PRN acute pain #90 08/21/23 tabs amoxicillin 875 mg-potassium 1 tab PO BID #9 tabs 09/12/24 clavulanate 125 mg tablet benzonatate 100 mg capsule 100 mg PO TID PRN cough #30 caps 09/14/24 prednisone 20 mg tablet 40 mg (2 x 20 mg) PO DAILY 4 days 09/14/24 #8 tabs promethazine 6.25 mg/5 mL oral 12.5 mg (10 mL) PO Q6H PRN cough 09/14/24 syrup #120 mL Allergies Allergy/AdvReac Type Severity Reaction Status Date / Time morphine Allergy Itching Verified 09/14/24 17:48 cephalexin monohydrate (From AdvReac Unknown Nausea Verified 09/14/24 17:48 Keflex) ibuprofen AdvReac Unknown GI Verified 09/14/24 17:48 BLEEDING/VOMITIN propoxyphene napsylate (From AdvReac Unknown Nausea Verified 09/14/24 17:48 Darvocet-N) clonazepam (From Klonopin) AdvReac Panic Verified 09/14/24 17:48 attack fluoxetine (From Prozac) AdvReac uncontrolable Verified 09/14/24 17:48 rage General Stated Complaint: RespSymp DEDE: 3 Exam Narrative Exam Narrative: Review of Systems: All systems reviewed & are unremarkable except as noted in HPI and below Well-developed, no acute distress NCAT Afebrile PERRL, normal conjunctiva Moist mucous membranes RRR no murmur Unlabored respiratory effort clear bilaterally Course Vital Signs Vital signs: Vital Signs Temperature 36.3 C L 09/14/24 17:45 Pulse 84 09/14/24 17:45 Respiratory Rate 15 09/14/24 17:45 Blood Pressure 98/73 L 09/14/24 17:45 Pulse Oximetry 94 09/14/24 17:45 Temperature 36.3 C L 09/14/24 17:59 Pulse 68 09/14/24 18:47 Respiratory Rate 16 09/14/24 18:47 Respiratory Effort Normal 09/14/24 17:59 Respiratory Depth Normal 09/14/24 17:59 Blood Pressure 103/72 09/14/24 18:47 Blood Pressure Position Sitting 09/14/24 17:59 Pulse Oximetry 97 09/14/24 18:47 Oxygen Delivery Method Room Air 09/14/24 17:59 Oxygen Flow Rate 0 09/14/24 17:59 Medical Decision Making Emergent evaluation of persistent URI symptoms with a diagnosis of influenza. Patient has been on antibiotics for 24 hours. She reports persistent symptoms. She is not doing a good job with oral hydration. She is still smoking. She was discharged on Augmentin which seems to be the appropriate therapy and I do not consider this to be a treatment failure. I we will add some additional medications for symptom improvement including Tessalon Perles, Phenergan syrup for cough and steroids given that she is a smoker. Return precautions advised recommend close follow-up with PCP. Quality:SDOH Health Related Social Needs: No Data to Display PFSH All Active Problems (Updated 09/14/24 @ 18:24 by Francisca Hallman MD) Pneumonia (Acute) Pneumonia (Acute) Acute respiratory infection (Acute) Viral respiratory illness (Acute) Contraception (Acute) Migraine headache without aura (Acute) Migraine headache with aura (Acute) Chronic headache (Acute) Nonspecific paroxysmal spell (Acute) Contraception (Acute) 02/24/2021 Rx for Xulane E faxed. Patient encouraged to come to [facility] to discuss control options Complete miscarriage (Acute) 11/01/2027 first trimester. At [facility]. 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 No D&C required. High risk social situations (Acute) Anxiety (Acute) Depressed (Acute) Medical History Meningitis Scoliosis Cognitive developmental delay Concussion Spontaneous Exertional asthma ADHD (01/11/95) BMI 38.0-38.9,adult Depression with anxiety Surgical History S/P spinal surgery s/p Jez nick Family History Mother Hyperlipidemia Seizures Mental health problem Alcohol abuse Substance abuse Father Alcohol abuse recovering Paternal Grandmother Cancer Social History Smoking/Tobacco Use Status: Current every day Tobacco Type: cigarettes Smoking packs per day: 0.5 Smoking cigarettes per day: 10.0 Smoking risk assessment performed?: Yes Alcohol Intake: current Alcohol Intake frequency: a few times a month Drug use: Daily Substance use type: marijuana Household members: none Housing: house Number of Children: 6 current occupation: Unemployed Do you feel safe at home: Yes Do you feel safe in your relationship?: Yes
== END 2024-09-14 18:49 | disposition home or self-care (01) ==
PROVIDERS: Emergency Provider Emergency Medicine; PCP Nurse Practitioner Family
DX: J18.9 Pneumonia, unspecified organism (principal); J45.909 Unspecified asthma, uncomplicated; F17.210 Nicotine dependence, cigarettes, uncomplicated
CPT/HCPCS: 99283

== ENCOUNTER 2024-10-12 21:39 | Emergency (ER) | payer MEDICARE, MEDICAID, SELFPAY ==
[2024-10-12] VITALS (12 sets, daily range): BP systolic 102–121; BP diastolic 52–80; PULSE 68–108; RESP 15–24; TEMP 36.4–36.8; O2SAT 96–98
--- NOTE | 2024-10-12 21:30 | RT.EKG_ITS ---
APPROVED REPORT Exam: Resting ECG Reason for Exam: pain in chest Patient Location: E HR:102 bpm ECG Measurements Heart Rate 102 AXIS ND 148 P 58 QRSd 82 QRS 35 QT 335 T 60 QTc 437 Conclusion Sinus tachycardia...rate> 99 Normal Mcdonald/Interval Normal ST segments
--- NOTE | 2024-10-12 22:02 | ED.GENADUL_ITS ---
Discharge Plan Disposition Patient Disposition: Home Discharge Details Clinical Impression: Ulnar nerve entrapment Primary Care Provider: Velia Bagley ED Provider: Steven Alvarez Meds and New Rx's Prescriptions: New ibuprofen 600 mg tablet 600 mg PO Q8H Qty: 15 0RF Rx Instructions: take with food Continued lamotrigine 200 mg tablet 200 mg PO DAILY Patient Comments: TAKE ONE TABLET BY MOUTH AT BEDTIME promethazine 6.25 mg/5 mL syrup 12.5 mg PO Q6H PRN (Reason: cough) Qty: 120 0RF Changed acetaminophen 500 mg capsule 1,000 mg PO Q8H Qty: 90 0RF Discontinued ibuprofen 400 mg tablet 400 mg PO Q6H PRN (Reason: acute pain) Qty: 90 0RF Discharge Instructions Additional Instructions: You were seen for left arm/hand pain which fits the distribution of the ulna nerve and suggest entrapment/inflammation/swelling. Wear the sling for comfort this weekend. Ice on and off at the elbow. Alternate the ibuprofen with acetaminophen as we discussed. See your PCP on Monday as scheduled. Return to ED for chest pain, shortness of breath, hand/wrist weakness, other concerns. Referrals: Velia Bagley [Primary Care Provider] - [facility] General Mode of arrival: ambulatory . Date/Time Provider Initiated Documentation: 10/12/24 21:42 . Limitations to Documentation: no limitations . Information obtained by: patient and RN notes reviewed . HPI Narrative: Patient presents to ED with complaint of left arm pain that has been present for 4 days. Pain seems to run along the ulnar side from the elbow down to the ring and middle finger. Sometimes pain goes up the arm into the left anterior shoulder and chest. She has not had this previously. She is right-hand dominant. She feels general malaise and fatigue but denies fever, cough, shortness of breath, abdominal pain, vomiting. Denies any injury or trauma. Has difficulty sleeping at night because of the pain. Does have an appointment to see primary care early next week. Has tried acetaminophen and ibuprofen though only sporadically. Related Data Home Medications ?Medication ?Instructions ?Recorded ?Confirmed lamotrigine 200 mg tablet 200 mg PO DAILY 08/17/24 10/12/24 promethazine 6.25 mg/5 mL oral 12.5 mg (10 mL) PO Q6H PRN cough 09/14/24 10/12/24 syrup #120 mL acetaminophen 500 mg capsule 1,000 mg (2 x 500 mg) PO Q8H acute 10/12/24 10/12/24 pain #90 caps ibuprofen 600 mg tablet 600 mg PO Q8H #15 tabs 10/12/24 Previous Rx's ?Medication ?Instructions ?Recorded promethazine 6.25 mg/5 mL oral 12.5 mg (10 mL) PO Q6H PRN cough 09/14/24 syrup #120 mL acetaminophen 500 mg capsule 1,000 mg (2 x 500 mg) PO Q8H acute 10/12/24 pain #90 caps ibuprofen 600 mg tablet 600 mg PO Q8H #15 tabs 10/12/24 Allergies Allergy/AdvReac Type Severity Reaction Status Date / Time morphine Allergy Itching Verified 10/12/24 21:45 cephalexin monohydrate (From AdvReac Unknown Nausea Verified 10/12/24 21:45 Keflex) ibuprofen AdvReac Unknown GI Verified 10/12/24 21:45 BLEEDING/VOMITIN propoxyphene napsylate (From AdvReac Unknown Nausea Verified 10/12/24 21:45 Darvocet-N) clonazepam (From Klonopin) AdvReac Panic Verified 10/12/24 21:45 attack fluoxetine (From Prozac) AdvReac uncontrolable Verified 10/12/24 21:45 rage General Stated Complaint: Chest Pain DEDE: 3 Exam Narrative Exam Narrative: Const: Overweight female in NAD. VS per triage. HEENT: NC/AT. Normal facial exam. Neck: Supple. Trachea midline. Lungs: Normal respiratory effort. Lungs are clear. Cor: RRR without murmur. Good radial pulses. Neuro: A+O x 3. Normal speech, mentation, gait. Cranial nerves II - XII grossly intact. No gross motor or sensory deficit. Ext: No C/C/E. LUE without swelling, redness. Good cap refill. Sensory and strength normal. Course Vital Signs Vital signs: Vital Signs Temperature 97.6 F 10/12/24 21:40 Pulse 108 H 10/12/24 21:40 Respiratory Rate 16 10/12/24 21:40 Blood Pressure 117/80 10/12/24 21:40 Pulse Oximetry 98 10/12/24 21:40 Temperature 97.6 F 10/12/24 21:40 Pulse 108 H 10/12/24 21:40 Respiratory Rate 16 10/12/24 21:40 Respiratory Effort Normal 10/12/24 21:46 Respiratory Depth Normal 10/12/24 21:46 Respiratory Pattern Normal 10/12/24 21:46 Blood Pressure 117/80 10/12/24 21:40 Pulse Oximetry 98 10/12/24 21:40 Pain Level 5 10/12/24 21:40 Medical Decision Making Patient presenting to ED with complaint of left arm pain. Majority of her pain is ulnar side from elbow to ring and little finger consistent with ulnar nerve impingement. She does complain of pain going up into the left anterior shoulder and chest without associated symptoms. Doubt very much that this is cardiac in nature given the distribution of pain. Nursing had placed IV and obtained EKG which per my read is sinus tachycardia otherwise normal. She does complain of general malaise and fatigue. Will obtain a single troponin, CBC and CMP, treat with ketorolac. She already has follow-up with primary care scheduled for early next week. Patient's laboratory studies are fine. Troponin is less than 4 making ACS extremely unlikely. Will give patient a sling for comfort. Recommend ice on and off to the elbow area. Alternate acetaminophen with ibuprofen every 4 hours and follow-up with primary care on Monday as scheduled. Return precautions provided. Lab Data Lab results reviewed: Yes I reviewed the patient's lab results. Lab results narrative: see [facility] ECG Data Attestation: I personally reviewed and interpreted this ECG (s) as follows: Prior ECG tracings: available for review Interpretation: see EKG/[facility] PFSH All Active Problems (Updated 10/12/24 @ 23:05 by Steven Alvarez MD) Ulnar nerve entrapment (Acute) Migraine headache without aura (Acute) Migraine headache with aura (Acute) Chronic headache (Acute) Nonspecific paroxysmal spell (Acute) Contraception (Acute) 02/24/2021 Rx for Xulane E faxed. Patient encouraged to come to [facility] to discuss control options Complete miscarriage (Acute) 11/01/2027 first trimester. At [facility]. 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 No D&C required. High risk social situations (Acute) Anxiety (Acute) Depressed (Acute) Medical History Meningitis Scoliosis Cognitive developmental delay Concussion Spontaneous Exertional asthma ADHD (01/11/95) BMI 38.0-38.9,adult Depression with anxiety Surgical History S/P spinal surgery s/p Story nick Family History Mother Hyperlipidemia Seizures Mental health problem Alcohol abuse Substance abuse Father Alcohol abuse recovering Paternal Grandmother Cancer Social History Smoking/Tobacco Use Status: Current every day Tobacco Type: cigarettes Smoking packs per day: 0.5 Smoking cigarettes per day: 10.0 Smoking risk assessment performed?: Yes Alcohol Intake: current Alcohol Intake frequency: a few times a month Drug use: Daily Substance use type: marijuana Household members: none Housing: house Number of Children: 6 current occupation: Unemployed Do you feel safe at home: Yes Do you feel safe in your relationship?: Yes
[2024-10-12 22:21] LABS: HCT 44.2 % (36.0-46.0); HGB 15.4 g/dL (11.2-15.7); MCH 32.6 pg (27.0-33.0); MCHC 34.8 % (32.0-36.0); MCV 93 fL (80-95); MPV 9.5 fL (8.0-11.0); Platelet Count 251 10^3/uL (130-400); RBC 4.73 10^6/uL (3.93-5.22); RDW 11.9 % (11.7-14.6); RDW-SD 41.1 fL; WBC 9.89 10^3/uL (4.4-10.8)
[2024-10-12] MEDS: Ketorolac 30 MG/ML VIAL IVP (22:27)
[2024-10-12 22:45] LABS: ALT 36 U/L (14-59); AST 13 U/L (15-37); Albumin 4.2 g/dL (3.4-5.0); Alkaline Phosphatase 79 U/L (46-116); Anion Gap 11.4 mmol/L (3-11); BUN 14 mg/dL (7-18); Bilirubin, Total 0.8 mg/dL (0.2-1.0); CO2 25.6 mmol/L (21.0-32.0); CREATININE 0.7 mg/dL (0.55-1.02); Calcium 9.3 mg/dL (8.5-10.1); Chloride 104 mmol/L (98-107); Estimated GFR 113.46 (mL/min/1.73m2); Glucose 106 mg/dL (74-106); Potassium 3.6 mmol/L (3.5-5.1); Sodium 141 mmol/L (136-145); Total Protein 8.1 g/dL (6.4-8.2)
[2024-10-12 22:53] LABS: Troponin I < 4 ng/L (<or=51)
== END 2024-10-12 23:12 | disposition home or self-care (01) ==
LOC: ER 23:18
PROVIDERS: Emergency Provider Emergency Medicine; PCP Nurse Practitioner Family
DX: G56.22 Lesion of ulnar nerve, left upper limb (principal); F17.210 Nicotine dependence, cigarettes, uncomplicated; M79.602 Pain in left arm; R07.9 Chest pain, unspecified; R53.81 Other malaise; R53.83 Other fatigue
CPT/HCPCS: 36415; 80053; 85027; 93005; 96374; 99284; 84484; 93010; J1885

== ENCOUNTER 2024-11-16 18:22 | Emergency (ER) | payer MEDICARE, MEDICAID, SELFPAY ==
[2024-11-16 18:32] VITALS: BP 125/85; PULSE 85; RESP 20; TEMP 36.8; O2SAT 100
--- NOTE | 2024-11-16 18:58 | W.ED.GENAD ---
Discharge Plan Disposition Patient Disposition: Home Condition: Stable Discharge Details Clinical Impression: Bilateral plantar fasciitis, Chronic sciatica Primary Care Provider: Velia Bagley ED Provider: Hilton Hyman Home Meds and New Rx's Prescriptions: New ketorolac 10 mg tablet 10 mg PO QID PRN5 Days Qty: 20 0RF Rx Instructions: maximum total duration of 5 days from all oral, intranasal, or parenteral formulations cyclobenzaprine 10 mg tablet 10 mg PO TID PRNQty: 30 0RF Continued lamotrigine 200 mg tablet 200 mg PO DAILY Patient Comments: TAKE ONE TABLET BY MOUTH AT BEDTIME promethazine 6.25 mg/5 mL syrup 12.5 mg PO Q6H PRN (Reason: cough) Qty: 120 0RF acetaminophen 500 mg capsule 1,000 mg PO Q8H Qty: 90 0RF Held ibuprofen 600 mg tablet 600 mg PO Q8H Qty: 15 0RF Hold Instructions: Resume on 11/21/24. HOLD WHILE ON KETOROLAC Rx Instructions: take with food Discharge Instructions Instructions: Heel pain caused by plantar fasciitis, Ketorolac (Systemic), Cyclobenzaprine, Sciatica ED Additional Instructions: You were seen in the emergency department for your plantar fasciitis causing heel pain as well as longstanding sciatica for which you have adequate treatment with a regular provider if you are receiving MRIs and other imaging studies. Please take 1000 mg of Tylenol every 6 hours, hold ibuprofen and take the prescribed Toradol for the next 5 days also 4 times per day-longterm in between Tylenol dosings. Apply [id number] lidocaine patches to your lower back at night for 12 hours, take the prescribed cyclobenzaprine 3 times per day as needed for skeletal muscle relaxation, apply heat and ice to the area of pain, you may purchase [id number] Voltaren gel and apply this to areas of pain as well as it is a topical anti-inflammatory. Roll the soles of your feet around on varying sports balls like a golf ball, lacrosse ball, tennis ball and baseball, the variety of size and hardness can help you work out your plantar fasciitis. Please follow-up with your primary care provider I have provided you with a referral to physical therapy as well, the ER cannot help you with narcotic pain relief for these problems. Please return for numbness to the genitals, urinary retention, loss of bowel underpants without noticing, severe back pain with high fever, neurovascular compromise to the legs. Stand Alone Forms: Physical Therapy Referral Referrals: Velia Bagley [Primary Care Provider] - Discharge Data Discharge Date/Time-TO BE ENTERED AT DEPARTURE: 11/16/24 19:29 HPI General Date/Time Provider Initiated Documentation: 11/16/24 18:39. HPI Narrative: 39 year-old female presents to ED today by POV/ambulating with a chief complaint of worsening bilateral plantar fasciitis with onset chronically- states she has been walking on hard concrete floors while incarcerated, seeking pain relief. Quality described as just needs one dose here, that's what her usual treatment protocol is, no radiation to lesions, inability to ambulate, leg pain, unilateral leg swelling, erythema, purulent drainage, endorses some pain into hips. Severity is described as severe, calmly. Palliating factors include nothing specific attempted. Provoking factors include nothing specific. Patient not anticoagulated. Related Data Home Medications ?Medication ?Instructions ?Recorded ?Confirmed lamotrigine 200 mg tablet 200 mg PO DAILY 08/17/24 11/16/24 promethazine 6.25 mg/5 mL oral 12.5 mg (10 mL) PO Q6H PRN cough 09/14/24 11/16/24 syrup #120 mL acetaminophen 500 mg capsule 1,000 mg (2 x 500 mg) PO Q8H acute 10/12/24 11/16/24 pain #90 caps ibuprofen 600 mg tablet 600 mg PO Q8H #15 tabs 10/12/24 11/16/24 cyclobenzaprine 10 mg tablet 10 mg PO TID PRN #30 tabs 11/16/24 ketorolac 10 mg tablet 10 mg PO QID PRN 5 days #20 tabs 11/16/24 Previous Rx's ?Medication ?Instructions ?Recorded promethazine 6.25 mg/5 mL oral 12.5 mg (10 mL) PO Q6H PRN cough 09/14/24 syrup #120 mL acetaminophen 500 mg capsule 1,000 mg (2 x 500 mg) PO Q8H acute 10/12/24 pain #90 caps ibuprofen 600 mg tablet 600 mg PO Q8H #15 tabs 10/12/24 cyclobenzaprine 10 mg tablet 10 mg PO TID PRN #30 tabs 11/16/24 ketorolac 10 mg tablet 10 mg PO QID PRN 5 days #20 tabs 11/16/24 Allergies Allergy/AdvReac Type Severity Reaction Status Date / Time morphine Allergy Itching Verified 11/16/24 18:36 cephalexin monohydrate (From AdvReac Unknown Nausea Verified 11/16/24 18:36 Keflex) ibuprofen AdvReac Unknown GI Verified 11/16/24 18:36 BLEEDING/VOMITIN propoxyphene napsylate (From AdvReac Unknown Nausea Verified 11/16/24 18:36 Darvocet-N) clonazepam (From Klonopin) AdvReac Panic Verified 11/16/24 18:36 attack fluoxetine (From Prozac) AdvReac uncontrolable Verified 11/16/24 18:36 rage General Stated Complaint: Orthopedic DEDE: 4 Review of Systems All systems reviewed & are unremarkable except as noted in HPI and below Exam Narrative Exam Narrative: GENERAL APPEARANCE: Well-nourished, non-toxic, awake and alert, atraumatic, no acute distress. SKIN: Warm, pink, dry, intact, without rashes/lesions/ulcerations. HEAD: Normocephalic, atraumatic, normal hair distribution for gender/age. EYES: Normal conjunctiva, no exudates on lids/lashes. ENT: Nares patent, no circumoral cyanosis, no facial swelling NECK: Supple, trachea midline, painless cervical ROM. LUNGS/CHEST: Non-labored respirations, normal A/P diameter, symmetrical expansion, no chest wall deformity HEART (CV/PV): Regular rate, R dorsalis pedis pulse 2+, no peripheral edema, no JVD. ABDOMEN: Soft, non-distended, no guarding. MSK: Normal ROM, no swelling/deformity to bilateral UEs or LEs, moving all extremities without weakness, no cyanosis, spine midline without tenderness- mild lumbar paraspinal tenderness, normal curvature, L lumbar paraspinal tenderness NEURO: Mental Status AAOx4 - alert to person, place, time, events No facial droop, no forehead involvement. Motor: No focal weakness - strength 5/5 in bilateral UEs and LEs, proximal and distal, symmetric. Sensory: sensation intact to light touch globally. Gait normal: patient ambulated without ataxia into ED room. PSYCH: euthymic, cooperative, pleasant, appropriate speech Course Vital Signs Vital signs: Vital Signs Temperature 36.8 C 11/16/24 18:32 Pulse 85 11/16/24 18:32 Respiratory Rate 20 11/16/24 18:32 Blood Pressure 125/85 11/16/24 18:32 Pulse Oximetry 100 11/16/24 18:32 Temperature 36.8 C 11/16/24 18:32 Pulse 85 11/16/24 18:32 Respiratory Rate 20 11/16/24 18:32 Blood Pressure 125/85 11/16/24 18:32 Pulse Oximetry 100 11/16/24 18:32 Oxygen Delivery Method Room Air 11/16/24 18:32 Oxygen Flow Rate 0 11/16/24 18:32 Pain Level 8 11/16/24 18:32 Medical Decision Making This dictation utilizes [id number] dictation software and may contain unedited grammatical errors. 39 year-old female presents to ED today by POV/ambulating with a chief complaint of worsening bilateral plantar fasciitis with onset chronically- states she has been walking on hard concrete floors while incarcerated, seeking pain relief. Quality described as just needs one dose here, that's what her usual treatment protocol is, no radiation to lesions, inability to ambulate, leg pain, unilateral leg swelling, erythema, purulent drainage, endorses some pain into hips. Severity is described as severe, calmly. Palliating factors include nothing specific attempted. Provoking factors include nothing specific. Patients' medical history: Noncontributory. Family and social history: Recent incarceration, denies EtOH use, denies illicit substance use. Pertinent exam findings / vital signs include tenderness of bilateral feet and the plantar fascia without any erythema Defee, mild hip tenderness, neurovascularly intact without any deficits in the lower extremities, lumbar paraspinal tenderness. Differential / pathologies of concern include plantar fasciitis, drug-seeking. Diagnostic studies of: - None. Interventions of: - P.o. Tylenol, Toradol, cyclobenzaprine, Lidoderm patch for possible sciatica radiating down the right leg. ED Course/Assessment/Plan: 39-year-old female presents with known plantar fasciitis and heel pain worse on the right, also having some shooting pains up to the hip on the right more so than the left but it is bilateral, she states that she had poor foot wear while incarcerated, she has known sciatica and states that she has a provider for this problem as she has had multiple MRIs and x-rays at [place] for this problem. I advised her that plantar fasciitis please usually resolve with stretching and rolling exercise balls beneath the plantar fascia, advised her that she needs to take Tylenol and ibuprofen, provided her a short course of Toradol and advised to hold ibuprofen while on it as well as cyclobenzaprine to go. She states that she wants something stronger and has been given a single dose in ERs for this prior, states that she does not need a prescription for narcotics but would like a dose right now. I advised her that this problem does not warrant narcotic pain management nor would we be providing acute narcotic pain management for her ongoing chronic problems, the patient expressed dissatisfaction with that outcome. Advised to return for emergent concerns. Findings not consistent with cauda equina, neurovascular compromise, trauma, infection. Disposition of Sciatica, Plantar Fasciitis. Patient verbalized understanding of the plan and return to ED criteria and engaged in shared decision making. Medical Records Medical records reviewed: Yes I reviewed the patient's medical records. Quality:[facility] Health Related Social Needs: No Data to Display PFSH All Active Problems (Updated 11/16/24 @ 18:59 by HEMA Pleitez) Chronic sciatica (Acute) Bilateral plantar fasciitis (Acute) Migraine headache without aura (Acute) Migraine headache with aura (Acute) Chronic headache (Acute) Nonspecific paroxysmal spell (Acute) Contraception (Acute) 02/24/2021 Rx for Xulane E faxed. Patient encouraged to come to [facility] to discuss control options Complete miscarriage (Acute) 11/01/2027 first trimester. At [facility]. Pathology currently pending [place] isoimmunization in (Chronic) 11/06/2019 current ended in [facility] on 11/01/2019. No D&C required. High risk social situations (Acute) Anxiety (Acute) Depressed (Acute) Medical History Meningitis Scoliosis Cognitive developmental delay Concussion Spontaneous Exertional asthma ADHD (01/11/95) BMI 38.0-38.9,adult Depression with anxiety Surgical History S/P spinal surgery s/p Jez nick Family History Mother Hyperlipidemia Seizures Mental health problem Alcohol abuse Substance abuse Father Alcohol abuse recovering Paternal Grandmother Cancer Social History Smoking/Tobacco Use Status: Current every day Tobacco Type: cigarettes Smoking packs per day: 0.5 Smoking cigarettes per day: 10.0 Smoking risk assessment performed?: Yes Alcohol Intake: current Alcohol Intake frequency: a few times a month Drug use: Daily Substance use type: marijuana Household members: none Housing: house Number of Children: 6 current occupation: Unemployed Do you feel safe at home: Yes Do you feel safe in your relationship?: Yes
[2024-11-16] MEDS: Ketorolac 10 MG TAB PO (19:12)
[2024-11-16] MEDS: Lidocaine 5% Patch 1 PATCH TP (19:12)
[2024-11-16] MEDS: Cyclobenzaprine 10 MG TAB PO (19:12)
[2024-11-16] MEDS: Acetaminophen 500 MG TAB 1000 MG PO (19:12)
== END 2024-11-16 19:29 | disposition home or self-care (01) ==
PROVIDERS: Emergency Provider Physician Assistant; PCP Nurse Practitioner Family
DX: M72.2 Plantar fascial fibromatosis (principal); M54.31 Sciatica, right side; M54.32 Sciatica, left side; F17.210 Nicotine dependence, cigarettes, uncomplicated
CPT/HCPCS: 99283

== ENCOUNTER 2024-12-10 01:04 | Outpatient (CLI) | payer MEDICARE, MEDICAID, SELFPAY ==
--- NOTE | 2024-12-10 09:45 | DI.RAD_ITS ---
Exam(s) XR FOOT LT COMPLETE EXAM: XR FOOT LT COMPLETE CLINICAL HISTORY: Left foot pain M79.672. TECHNIQUE: 2D digital imaging was performed of the left foot. Three images were obtained. AP, obli que and lateral views were obtained. COMPARISON: There are no priors for comparison. FINDINGS: BONES: No acute fracture is present. No bony destructive lesion is seen. JOINTS: No dislocation present. SOFT TISSUE: Normal. IMPRESSION: Unremarkable radiographs of the left foot. DATA REPOSITORY: RADIATION DOSE DELIVERED:
--- NOTE | 2024-12-10 13:25 | DI.RAD_ITS ---
Exam(s) XR FOOT RT COMPLETE EXAM: XR FOOT RT COMPLETE CLINICAL HISTORY: Right foot pain M79.671. TECHNIQUE: 2D digital imaging was performed of the right foot. Three images were obtained. AP, obl ique and lateral views were obtained. COMPARISON: No exams were available for comparison FINDINGS: BONES: No acute fracture is present. No bony destructive lesion is seen. There is a small plantar paty caneal spur. JOINTS: No dislocation present. The joint spaces are well maintained. SOFT TISSUE: Normal. IMPRESSION: Calcaneal spur. DATA REPOSITORY: RADIATION DOSE DELIVERED:
== END 2024-12-10 01:24 ==
LOC: DI 01:05
PROVIDERS: PCP Nurse Practitioner Family; Visit Provider Podiatrist
DX: M77.31 Calcaneal spur, right foot (principal); M79.671 Pain in right foot; M72.2 Plantar fascial fibromatosis; M67.01 Short Achilles tendon (acquired), right ankle; L84 Corns and callosities; R23.4 Changes in skin texture
CPT/HCPCS: 20550; 20600; 72082; 99213; J0702; J1100; 73630

== ENCOUNTER 2024-12-10 01:05 | Outpatient (CLI) | payer MEDICARE, MEDICAID, SELFPAY ==
--- NOTE | 2024-12-10 09:45 | DI.RAD_ITS ---
Exam(s) XR SCOLIOSIS T-L SPINE EXAM: XR SCOLIOSIS T-L SPINE CLINICAL HISTORY: Scoliosis evaluation. TECHNIQUE: 2D digital imaging was performed. COMPARISON: CR SPINE THORACIC A-P AND LATERAL from 03/27/2015 CR SPINE LUMBAR 4V MIN W OBLIQUES from 03/27/2015 FINDINGS: Exam is limited by under penetration. Scoliosis: Story rods are noted in the thoracic through upper lumbar spine. There is a dextro r otoscoliosis of approximately 25 degrees with apex at T6-7. There is a levoscoliosis of the lumbar s pine measuring approximately 15 degrees. Grossly similar to 2015 examination. Vertebrae: No anomalies seen. No hypertrophy is identified. The disc spaces are maintained. No spon dylolysis or spondylolisthesis. Hip joint spaces are maintained. There is no overall leg length discrepancy. Remainder of the visualized osseous and soft tissue structures: No acute findings. IMPRESSION: Story rods in the thoracic and upper lumbar spine. Scoliotic curvature of the thoracolumbar spi ne identified as above. DATA REPOSITORY: RADIATION DOSE DELIVERED:
== END 2024-12-10 01:25 ==
LOC: DI 01:05
PROVIDERS: PCP Nurse Practitioner Family; Visit Provider Physician Assistant
DX: G89.29 Other chronic pain (principal); M77.31 Calcaneal spur, right foot
CPT/HCPCS: 72082

== ENCOUNTER 2024-12-26 23:46 | Emergency (ER) | payer MEDICARE, MEDICAID, SELFPAY ==
[2024-12-26 23:52] VITALS: BP 124/87; PULSE 90; RESP 22; TEMP 37; O2SAT 99
[2024-12-26 23:58] VITALS: RESP 22
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
[2024-12-27] MEDS: LORazepam 1 MG TAB PO (00:29)
== END 2024-12-27 01:16 | disposition home or self-care (01) ==
PROVIDERS: Emergency Provider Emergency Medicine; PCP Physician Assistant
DX: F41.0 Panic disorder [episodic paroxysmal anxiety] (principal); F41.9 Anxiety disorder, unspecified; F17.210 Nicotine dependence, cigarettes, uncomplicated; Z59.00 Homelessness unspecified
CPT/HCPCS: 99283

== ENCOUNTER 2025-01-20 14:48 | Emergency (ER) | payer MEDICARE, MEDICAID, SELFPAY ==
[2025-01-20 14:49] VITALS: BP 100/69; PULSE 88; RESP 14; TEMP 36.7; O2SAT 98
--- NOTE | 2025-01-20 15:00 | RT.EKG_ITS ---
APPROVED REPORT Exam: Resting ECG Reason for Exam: near syncope Patient Location: E HR:122 bpm ECG Measurements Heart Rate 122 AXIS KS 178 P 28 QRSd 91 QRS 40 QT 425 T 54 QTc 606 Conclusion Sinus tachycardia, rate 122 No STEMI I calculate her QTc as 456 using the Bazett formula No significant changes from priors
--- NOTE | 2025-01-20 15:16 | W.ED.GENAD ---
Discharge Plan Disposition Patient Disposition: Home Condition: Stable Discharge Details Clinical Impression: Overexertion, Dehydration symptoms Primary Care Provider: Jim Hernandez ED Provider: Lisa Patel Home Meds and New Rx's Prescriptions: No Action lamotrigine 200 mg tablet 200 mg PO DAILY Patient Comments: TAKE ONE TABLET BY MOUTH AT BEDTIME ipratropium-albuterol 0.5 mg-3 mg(2.5 mg base)/3 mL solution for nebulization 3 ml INHALATION QID PRN Patient Comments: INHALE THE CONTENTS OF 1 VIAL (3 ML) FOUR TIMES A DAY VIA NEBULIZER NEEDED methylphenidate HCl 20 mg tablet 20 mg PO BID Patient Comments: TAKE ONE TABLET BY MOUTH TWICE A DAY hydroxyzine HCl 50 mg tablet 50 mg PO Q6H PRN Patient Comments: TAKE ONE TABLET BY MOUTH EVERY 6 HOURS NEEDED FOR ANXIETY albuterol sulfate 90 mcg/actuation HFA aerosol inhaler 2 puff INHALATION Q4H Patient Comments: INHALE 1 TO 2 PUFFS BY MOUTH EVERY 4 TO 6 HOURS NEEDED prazosin 1 mg capsule 3 mg PO DAILY PRN Patient Comments: TAKE THREE CAPSULES BY MOUTH EVERY DAY AT BEDTIME ibuprofen 600 mg tablet 600 mg PO Q8H Qty: 15 0RF Rx Instructions: take with food acetaminophen 500 mg capsule 1,000 mg PO Q8H Qty: 90 0RF cyclobenzaprine 10 mg tablet 10 mg PO TID PRNQty: 30 0RF Discharge Instructions Instructions: Dehydration, Adult (DC) Additional Instructions: You were seen in the emergency department today for evaluation of potential heatstroke. In our department a full physical examination performed, had laboratory studies that were reassuring, and had no sign of abnormalities on your urinalysis. You received IV fluids, and I recommend that you continue to maintain good oral hydration, and need to follow-up with your primary care provider in the next few days to discuss this visit and any symptoms that change, worsen, or persist. Additionally, your body needs fuel in the form of good nutrition, as well as electrolytes to replace those that you lose in sweat. You can drink sports drinks to achieve this goal. Please follow-up with your primary care provider in the next few days to discuss this visit and any symptoms that change, worsen, or persist. Thank you for allowing us to be part of your care. Discharge Data Discharge Date/Time-TO BE ENTERED AT DEPARTURE: 01/20/25 18:01 HPI General Mode of arrival: ambulatory. Date/Time Provider Initiated Documentation: 01/20/25 14:51. Limitations to Documentation: no limitations. Information obtained by: patient, family and old records reviewed. HPI Narrative: This is a 39-year-old female patient with a past medical history significant for housing instability, migraine headache, anxiety and depression who is presenting for evaluation of weakness, fatigue, and dizziness. The patient reports that she has been moving all of her things to a storage unit, and is concerned that she has become dehydrated or has heatstroke. She reports that this morning she felt like she just could not get up to do her tasks. She states that she has been drinking water, but has had poor thirst and appetite. She has noted frequent urination but denies dysuria or hematuria. She reports no trauma or loss of consciousness but has felt lightheaded. She is well supported from a social situation by her outpatient providers, friends and family, but feels very overwhelmed with losing her housing. Related Data Home Medications ?Medication ?Instructions ?Recorded ?Confirmed lamotrigine 200 mg tablet 200 mg PO DAILY 08/17/24 01/20/25 acetaminophen 500 mg capsule 1,000 mg (2 x 500 mg) PO Q8H acute 10/12/24 01/20/25 pain #90 caps ibuprofen 600 mg tablet 600 mg PO Q8H #15 tabs 10/12/24 01/20/25 cyclobenzaprine 10 mg tablet 10 mg PO TID PRN #30 tabs 11/16/24 01/20/25 albuterol sulfate 90 mcg/actuation 2 puff inhalation Q4H 12/27/24 01/20/25 aerosol inhaler hydroxyzine HCl 50 mg tablet 50 mg PO Q6H PRN 12/27/24 01/20/25 ipratropium 0.5 mg-albuterol 3 mg 3 ml inhalation QID PRN 12/27/24 01/20/25 (2.5 mg base)/3 mL nebulization soln methylphenidate HCl 20 mg tablet 20 mg PO BID 12/27/24 01/20/25 prazosin 1 mg capsule 3 mg PO DAILY PRN 12/27/24 01/20/25 Previous Rx's ?Medication ?Instructions ?Recorded acetaminophen 500 mg capsule 1,000 mg (2 x 500 mg) PO Q8H acute 10/12/24 pain #90 caps ibuprofen 600 mg tablet 600 mg PO Q8H #15 tabs 10/12/24 cyclobenzaprine 10 mg tablet 10 mg PO TID PRN #30 tabs 11/16/24 Allergies Allergy/AdvReac Type Severity Reaction Status Date / Time morphine Allergy Itching Verified 01/20/25 14:55 cephalexin monohydrate (From AdvReac Unknown Nausea Verified 01/20/25 14:55 Keflex) ibuprofen AdvReac Unknown GI Verified 01/20/25 14:55 BLEEDING/VOMITIN propoxyphene napsylate (From AdvReac Unknown Nausea Verified 01/20/25 14:55 Darvocet-N) clonazepam (From Klonopin) AdvReac Panic Verified 01/20/25 14:55 attack fluoxetine (From Prozac) AdvReac uncontrolable Verified 01/20/25 14:55 rage General Stated Complaint: GenMedical DEDE: 3 Exam Narrative Exam Narrative: Gen: Awake and alert, in no apparent distress HEENT: Non-icteric sclera, PERRL Neck: Supple Lungs: No apparent respiratory distress, normal respiratory effort. Lung sounds clear and equal bilaterally without wheezes, rhonchi, rales CV: Appears well perfused, heart with regular rate and rhythm, strong distal pulses, no murmurs auscultated Abdomen: Non-distended, soft MSK: Moves 4 extremities without apparent limitation in ROM. No peripheral edema, no unilateral calf swelling or tenderness Skin: Visualized skin without rashes, cyanosis. Neuro: Normal Gait, no obvious focal deficits or facial asymmetry. Speaks in full, clear sentences. Psych: Appropriate for situation. Course Vital Signs Vital signs: Vital Signs Temperature 36.7 C 01/20/25 14:49 Pulse 88 01/20/25 14:49 Respiratory Rate 14 01/20/25 14:49 Blood Pressure 100/69 01/20/25 14:49 Pulse Oximetry 98 01/20/25 14:49 Temperature 36.7 C 01/20/25 14:49 Pulse 88 01/20/25 14:49 Respiratory Rate 14 01/20/25 14:49 Blood Pressure 100/69 01/20/25 14:49 Pulse Oximetry 98 01/20/25 14:49 Medical Decision Making This is a 39-year-old female patient presenting for evaluation of lightheadedness and frequent urination in the setting of increased physical exertion. My differential includes but is not limited to heatstroke, dehydration, metabolic and electrolyte derangement, kidney injury, anemia. Certainly considered urinary tract infection, patient does not have diabetes but the frequency of urination does increase my concern for hyperglycemia. I considered arrhythmia, no chest pain to suggest ACS. The patient reports no abdominal tenderness to suggest a severe intra-abdominal pathology as the cause of her lack of thirst and hunger. We will obtain an EKG, laboratory studies to include CBC, CMP, magnesium, and a urinalysis. I will provide the patient with a dose of Zofran, and a liter of IV fluids for rehydration. We will p.o. challenge this patient. - I independently interpreted the laboratory studies, which show no significant leukocytosis, anemia, or thrombocytopenia. The chemistry panel is without evidence of electrolyte abnormality, kidney dysfunction, or liver injury. Urinalysis noninfectious and without evidence of ketonuria to suggest severe dehydration. After hydration the patient reports improvement in her symptoms, and was able to p.o. challenge successfully. At this time, the patient has had a full medical evaluation and is safe for discharge to home. They are hemodynamically stable, ambulatory, and tolerating PO. They are understanding of the follow-up plan and return precautions. They left our facility without incident. Lisa Patel MD [facility] All Active Problems (Updated 01/20/25 @ 17:51 by Lisa Patel MD) Dehydration symptoms (Acute) Overexertion (Acute) Panic attack (Acute) Fissure in skin (Acute) Corns and callosities (Acute) Pain in right foot (Acute) Achilles tendon contracture, right (Acute) Migraine headache without aura (Acute) Migraine headache with aura (Acute) Chronic headache (Acute) Nonspecific paroxysmal spell (Acute) Contraception (Acute) 02/24/2021 Rx for Xulane E faxed. Patient encouraged to come to [facility] to discuss control options Complete miscarriage (Acute) 11/01/2027 first trimester. At [facility]. 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 No D&C required. High risk social situations (Acute) Anxiety (Acute) Depressed (Acute) Medical History Meningitis Scoliosis Cognitive developmental delay Concussion Spontaneous Exertional asthma ADHD (01/11/95) BMI 38.0-38.9,adult Depression with anxiety Surgical History S/P spinal surgery s/p Story nick Family History Mother Hyperlipidemia Seizures Mental health problem Alcohol abuse Substance abuse Father Alcohol abuse recovering Paternal Grandmother Cancer Social History Smoking/Tobacco Use Status: Current every day Tobacco Type: cigarettes Smoking packs per day: 0.5 Smoking cigarettes per day: 10.0 Smoking risk assessment performed?: Yes Alcohol Intake: current Alcohol Intake frequency: a few times a month Drug use: Daily Substance use type: marijuana Household members: none Housing: homeless Number of Children: 6 current occupation: Unemployed Do you feel safe at home: Yes Do you feel safe in your relationship?: Yes
[2025-01-20] MEDS: Lactated Ringers 1,000 ML 1000 ML IV (15:55)
[2025-01-20] MEDS: Ondansetron 4 MG/2 ML VIAL IVP (15:56)
[2025-01-20 16:02] LABS: Abs Immature Grans 0.02 10^3/uL (0.0-0.06); Absolute Basophil Count 0.03 10^3/uL (0.0-0.2); Absolute Eosinophil Count 0.11 10^3/uL (0.0-0.7); Absolute Monocyte Count 0.45 10^3/uL (0.1-0.8); Absolute Neutrophil Count 5.85 10^3/uL (1.2-6.7); Basophils % 0.3 %; Eosinophils % 1.3 %; HCT 45.1 % (36.0-46.0); HGB 15.6 g/dL (11.2-15.7); Immature Grans % 0.2 %; Lymphocytes % 25.4 %; MCH 31.7 pg (27.0-33.0); MCHC 34.6 % (32.0-36.0); MCV 92 fL (80-95); MPV 9.7 fL (8.0-11.0); Monocytes % 5.2 %; Neutrophils % 67.6 %; Platelet Count 254 10^3/uL (130-400); RBC 4.92 10^6/uL (3.93-5.22); RDW 11.9 % (11.7-14.6); RDW-SD 39.9 fL; WBC 8.66 10^3/uL (4.4-10.8)
[2025-01-20 16:16] LABS: ALT 39 U/L (14-59); AST 16 U/L (15-37); Albumin 4.5 g/dL (3.4-5.0); Alkaline Phosphatase 78 U/L (46-116); BUN 10 mg/dL (7-18); Bilirubin, Total 0.8 mg/dL (0.2-1.0); CREATININE 0.6 mg/dL (0.55-1.02); Calcium 9.6 mg/dL (8.5-10.1); Chloride 101 mmol/L (98-107); Estimated GFR 117.75 (mL/min/1.73m2); Glucose 85 mg/dL (74-106); Magnesium 1.9 mg/dL (1.8-2.4); Potassium 3.9 mmol/L (3.5-5.1); Sodium 138 mmol/L (136-145); Total Protein 8.3 g/dL (6.4-8.2)
[2025-01-20 16:28] LABS: Bilirubin Negative (Negative); Blood Negative (Negative); Clarity Clear (Clear); Glucose Negative (Negative); Ketones Negative (Negative); Leukocyte Esterase Negative (Negative); Nitrite Negative (Negative); Specific Gravity <= 1.005 (1.005-1.025); Urobilinogen 0.2 mg/dL (Up to 0.2); pH 5.5 (5-8)
[2025-01-20] MEDS: Acetaminophen 500 MG TAB 1000 MG PO (17:56)
[2025-01-20 18:00] VITALS: BP 100/69; PULSE 88; RESP 14; RESP 20; TEMP 36.7; O2SAT 98
== END 2025-01-20 18:01 | disposition home or self-care (01) ==
PROVIDERS: Emergency Provider Emergency Medicine; PCP Physician Assistant
DX: T73.3XXA Exhaustion due to excessive exertion, initial encounter (principal); E86.0 Dehydration; R00.0 Tachycardia, unspecified; F17.210 Nicotine dependence, cigarettes, uncomplicated; X58.XXXA Exposure to other specified factors, initial encounter
CPT/HCPCS: 80053; 93005; 96361; 96374; 99284; 81003; 83735; 85025; 93010; J2405

== ENCOUNTER 2025-02-18 13:10 | Emergency (ER) | payer MEDICARE, MEDICAID, SELFPAY ==
[2025-02-18 13:12] VITALS: BP 117/74; PULSE 85; RESP 16; TEMP 36.6; O2SAT 97
--- NOTE | 2025-02-18 14:04 | W.ED.GENAD ---
Discharge Plan Disposition Patient Disposition: Home Condition: Stable Discharge Details Clinical Impression: Neck pain Primary Care Provider: Jim Hernandez ED Provider: Hilton Hyman Home Meds and New Rx's Prescriptions: New ketorolac 10 mg tablet 10 mg PO QID 5 Days Qty: 20 0RF Rx Instructions: maximum total duration of 5 days from all oral, intranasal, or parenteral formulations cyclobenzaprine 10 mg tablet 10 mg PO TID PRNQty: 30 0RF diclofenac sodium 1 % gel 2 g topical QID Qty: 50 0RF Rx Instructions: apply to single elbow, wrist or hand; for hand includes palm/fingers/back of hand Continued lamotrigine 200 mg tablet 200 mg PO DAILY Patient Comments: TAKE ONE TABLET BY MOUTH AT BEDTIME ipratropium-albuterol 0.5 mg-3 mg(2.5 mg base)/3 mL solution for nebulization 3 ml INHALATION QID PRN Patient Comments: INHALE THE CONTENTS OF 1 VIAL (3 ML) FOUR TIMES A DAY VIA NEBULIZER NEEDED methylphenidate HCl 20 mg tablet 20 mg PO BID Patient Comments: TAKE ONE TABLET BY MOUTH TWICE A DAY hydroxyzine HCl 50 mg tablet 50 mg PO Q6H PRN Patient Comments: TAKE ONE TABLET BY MOUTH EVERY 6 HOURS NEEDED FOR ANXIETY albuterol sulfate 90 mcg/actuation HFA aerosol inhaler 2 puff INHALATION Q4H Patient Comments: INHALE 1 TO 2 PUFFS BY MOUTH EVERY 4 TO 6 HOURS NEEDED prazosin 1 mg capsule 3 mg PO DAILY PRN Patient Comments: TAKE THREE CAPSULES BY MOUTH EVERY DAY AT BEDTIME clonidine HCl 0.1 mg tablet 0.1 mg PO BID PRN Patient Comments: TAKE ONE TABLET BY MOUTH TWICE A DAY NEEDED FOR ANXIETY acetaminophen 500 mg capsule 1,000 mg PO Q8H Qty: 90 0RF cyclobenzaprine 10 mg tablet 10 mg PO TID PRNQty: 30 0RF Held ibuprofen 600 mg tablet 600 mg PO Q8H Qty: 15 0RF Hold Instructions: Resume on 02/23/25. HOLD while on the Rx'd ketorolac Rx Instructions: take with food Discharge Instructions Instructions: Diclofenac (Topical), Ketorolac (Systemic), Cyclobenzaprine, Neck Pain ED Additional Instructions: You were seen in the emergency department for your chronic neck pain, placed on the follow-up list for the pain clinic here at the hospital, have sent prescriptions for Toradol and a muscle relaxant called Flexeril as well as topical anti-inflammatory gel called Voltaren to the pharmacy. Please pick these up, I have provided a physical therapy referral which you are welcome to present to any therapy office to help ease your neck pain. Please follow-up with your [facility] spine doctors, please return for any bowel or urinary changes, neurovascular compromise to either upper extremity or severe increase in neck pain especially with fever. Stand Alone Forms: Physical Therapy Referral Referrals: [facility] [Provider Group] Jim Hernandez PA [Primary Care Provider, Medicine] Discharge Data Discharge Date/Time-TO BE ENTERED AT DEPARTURE: 02/18/25 15:26 HPI General Date/Time Provider Initiated Documentation: 02/18/25 13:29. HPI Narrative: 40 year-old female presents to ED today by POV/ambulating with a chief complaint of acute on chronic back and neck pain- due to sleeping at a friends house on a loveseat awkwardly, needing pain relief as it hurts when she sits or stands for long periods with onset over the past few days. Quality described as pain with movement, stiffness, no radiation to urinary retention, bowel incontinence, saddle anesthesia, trauma, bruising, deformity, weakness/numbness of any extremity. Severity is described as 10/10. Palliating factors include out of medications. Provoking factors include prolonged standing and sitting. Events leading up to the incident/Associated Symptoms: Patient is currently homeless- is seen by [facility] Pain clinic, has a spine doctor there as well but has been having trouble getting to appointments. Patient not anticoagulated. Related Data Home Medications ?Medication ?Instructions ?Recorded ?Confirmed lamotrigine 200 mg tablet 200 mg PO DAILY 08/17/24 02/18/25 acetaminophen 500 mg capsule 1,000 mg (2 x 500 mg) PO Q8H acute 10/12/24 02/18/25 pain #90 caps ibuprofen 600 mg tablet 600 mg PO Q8H #15 tabs 10/12/24 02/18/25 Held on 02/18/25. Instructions: Resume on 02/23/25. HOLD while on the Rx'd ketorolac cyclobenzaprine 10 mg tablet 10 mg PO TID PRN #30 tabs 11/16/24 02/18/25 albuterol sulfate 90 mcg/actuation 2 puff inhalation Q4H 12/27/24 02/18/25 aerosol inhaler hydroxyzine HCl 50 mg tablet 50 mg PO Q6H PRN 12/27/24 02/18/25 ipratropium 0.5 mg-albuterol 3 mg 3 ml inhalation QID PRN 12/27/24 02/18/25 (2.5 mg base)/3 mL nebulization soln methylphenidate HCl 20 mg tablet 20 mg PO BID 12/27/24 02/18/25 prazosin 1 mg capsule 3 mg PO DAILY PRN 12/27/24 02/18/25 clonidine HCl 0.1 mg tablet 0.1 mg PO BID PRN 02/18/25 02/18/25 cyclobenzaprine 10 mg tablet 10 mg PO TID PRN #30 tabs 02/18/25 diclofenac sodium 1 % topical gel 2 g topical QID #50 grams 02/18/25 ketorolac 10 mg tablet 10 mg PO QID 5 days #20 tabs 02/18/25 Previous Rx's ?Medication ?Instructions ?Recorded acetaminophen 500 mg capsule 1,000 mg (2 x 500 mg) PO Q8H acute 10/12/24 pain #90 caps ibuprofen 600 mg tablet 600 mg PO Q8H #15 tabs 10/12/24 Held on 02/18/25. Instructions: Resume on 02/23/25. HOLD while on the Rx'd ketorolac cyclobenzaprine 10 mg tablet 10 mg PO TID PRN #30 tabs 11/16/24 cyclobenzaprine 10 mg tablet 10 mg PO TID PRN #30 tabs 02/18/25 diclofenac sodium 1 % topical gel 2 g topical QID #50 grams 02/18/25 ketorolac 10 mg tablet 10 mg PO QID 5 days #20 tabs 02/18/25 Allergies Allergy/AdvReac Type Severity Reaction Status Date / Time morphine Allergy Itching Verified 02/18/25 13:22 cephalexin monohydrate (From AdvReac Unknown Nausea Verified 02/18/25 13:22 Keflex) propoxyphene napsylate (From AdvReac Unknown Nausea Verified 02/18/25 13:22 Darvocet-N) clonazepam (From Klonopin) AdvReac Panic Verified 02/18/25 13:22 attack fluoxetine (From Prozac) AdvReac uncontrolable Verified 02/18/25 13:22 rage General Stated Complaint: Orthopedic DEDE: 4 Review of Systems All systems reviewed & are unremarkable except as noted in HPI and below Exam Narrative Exam Narrative: GENERAL APPEARANCE: Well-nourished, non-toxic, awake and alert, atraumatic, no acute distress. SKIN: Warm, pink, dry, intact, without rashes/lesions/ulcerations. HEAD: Normocephalic, atraumatic, normal hair distribution for gender/age. EYES: Normal conjunctiva, no exudates on lids/lashes. ENT: Nares patent, no circumoral cyanosis, no facial swelling NECK: Supple, trachea midline, painless cervical ROM. LUNGS/CHEST: Lungs CTA bilaterally- no rhonchi/rales/wheezes diffusely, non-labored respirations, normal A/P diameter, symmetrical expansion, no chest wall deformity HEART (CV/PV): Regular rate and rhythm without murmur, no peripheral edema, no JVD. ABDOMEN: Soft, non-distended, no guarding, no tenderness. MSK: Normal ROM, no swelling/deformity to bilateral UEs or LEs, moving all extremities without weakness, no cyanosis, spine midline with tenderness diffusely, paraspinal muscle palpable tension, no crepitus/step-offs, normal curvature. NEURO: Mental Status AAOx4 - alert to person, place, time, events No facial droop, no forehead involvement. Motor: No focal weakness - strength 5/5 in bilateral UEs and LEs, proximal and distal, symmetric. Sensory: sensation intact to light touch globally. Gait normal: patient ambulated without ataxia into ED room. PSYCH: euthymic, cooperative, pleasant, appropriate speech Course Vital Signs Vital signs: Vital Signs Temperature 36.6 C 02/18/25 13:12 Pulse 85 02/18/25 13:12 Respiratory Rate 16 02/18/25 13:12 Blood Pressure 117/74 02/18/25 13:12 Pulse Oximetry 97 02/18/25 13:12 Temperature 36.6 C 02/18/25 13:12 Temperature Source Oral 02/18/25 13:12 Pulse 85 02/18/25 13:12 Respiratory Rate 16 02/18/25 13:12 Blood Pressure 117/74 02/18/25 13:12 Blood Pressure Position Supine 02/18/25 13:12 Pulse Oximetry 97 02/18/25 13:12 Oxygen Delivery Method Room Air 02/18/25 13:12 Oxygen Flow Rate 0 02/18/25 13:12 Pain Level 4 02/18/25 13:12 Medical Decision Making This dictation utilizes [id number] dictation software and may contain unedited grammatical errors. 40 year-old female presents to ED today by POV/ambulating with a chief complaint of acute on chronic back and neck pain- due to sleeping at a friends house on a loveseat awkwardly, needing pain relief as it hurts when she sits or stands for long periods with onset over the past few days. Quality described as pain with movement, stiffness, no radiation to urinary retention, bowel incontinence, saddle anesthesia, trauma, bruising, deformity, weakness/numbness of any extremity. Severity is described as 10/10. Palliating factors include out of medications. Provoking factors include prolonged standing and sitting. Events leading up to the incident/Associated Symptoms: Patient is currently homeless- is seen by [facility] Pain clinic, has a spine doctor there as well but has been having trouble getting to appointments. Patients' medical history: Scoliosis, asthma, depression with anxiety, migraine headache, chronic back pain. Family and social history: Denies EtOH or drug use. Pertinent exam findings / vital signs include diffuse back tenderness, palpable paraspinal muscle tension, neurovascularly intact in the upper and lower extremities without weakness or sensory deficit, no saddle anesthesia, benign cardiopulmonary exam. Differential / pathologies of concern include acute on chronic back pain, muscle spasm, not cauda equina or spinal epidural abscess. Diagnostic studies of: - Discussed imaging but deferring at this time as the patient's pain is exacerbated from sleeping on a couch wrong, no trauma and no need for unnecessary radiation with chronic ongoing issues. Interventions of: - 1000 mg p.o. Tylenol, 30 mg IM Toradol, 10 mg cyclobenzaprine p.o., Lidoderm patch. ED Course/Assessment/Plan: 40-year-old female complaining of acute on chronic neck pain and back pain with known scoliosis, constellation of issues but has visits with [facility] pain clinic hematoma block, orthospine doctors, states this all stems from her homelessness and sleeping on a friend's couch that is very uncomfortable and has no focal neurologic deficits or signs of cauda equina. Counseled on no likely need for unnecessary radiation via CAT scan and unable to perform MRI this afternoon, patient has had MRIs in the past and has no new trauma, I did provide her with symptomatic relief medications. Patient did take a prolonged bathroom break and seemed quite a bit more intoxicated towards the end of visit but was requesting discharge, had a safe line driver home and her friend. RN brought this to my attention I do agree with their assessment that she could have ingested a substance here in the ER but is no displaying any neurologic deficits and is reasonable for discharge home. Findings not consistent with cauda equina, muscular weakness of lower upper extremity, new trauma or vertebral fracture. Disposition of Neck Pain. Patient verbalized understanding of the plan and return to ED criteria and engaged in shared decision making. Medical Records Medical records reviewed: Yes I reviewed the patient's medical records. PFSH All Active Problems (Updated 02/20/25 @ 00:02 by DOMINGA NUNEZ) Neck pain (Acute) Fissure in skin (Acute) Corns and callosities (Acute) Pain in right foot (Acute) Achilles tendon contracture, right (Acute) Migraine headache without aura (Acute) Migraine headache with aura (Acute) Chronic headache (Acute) Nonspecific paroxysmal spell (Acute) Contraception (Acute) 02/24/2021 Rx for Xulane E faxed. Patient encouraged to come to [facility] to discuss control options Complete miscarriage (Acute) 11/01/2027 first trimester. At . 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 No D&C required. High risk social situations (Acute) Anxiety (Acute) Depressed (Acute) Medical History Meningitis Scoliosis Cognitive developmental delay Concussion Spontaneous Exertional asthma ADHD (01/11/95) BMI 38.0-38.9,adult Depression with anxiety Surgical History S/P spinal surgery s/p Story nick Family History Mother Hyperlipidemia Seizures Mental health problem Alcohol abuse Substance abuse Father Alcohol abuse recovering Paternal Grandmother Cancer Social History Smoking/Tobacco Use Status: Current every day Tobacco Type: cigarettes Smoking packs per day: 0.5 Smoking cigarettes per day: 10.0 Smoking risk assessment performed?: Yes Alcohol Intake: current Alcohol Intake frequency: a few times a month Drug use: Daily Substance use type: marijuana Household members: none Housing: homeless Number of Children: 6 current occupation: Unemployed Do you feel safe at home: Yes Do you feel safe in your relationship?: Yes
[2025-02-18] MEDS: Ketorolac 30 MG/ML VIAL IM (14:24)
[2025-02-18] MEDS: Lidocaine 5% Patch 1 PATCH TP (14:24)
[2025-02-18] MEDS: Cyclobenzaprine 10 MG TAB PO (14:24)
[2025-02-18] MEDS: Acetaminophen 500 MG TAB 1000 MG PO (14:24)
[2025-02-18 15:26] VITALS: BP 101/60; PULSE 61; RESP 15; O2SAT 99
== END 2025-02-18 15:26 | disposition home or self-care (01) ==
PROVIDERS: Emergency Provider Physician Assistant; PCP Physician Assistant
DX: M54.2 Cervicalgia (principal)
CPT/HCPCS: 99283; 99284; 96372; J1885

== ENCOUNTER 2025-03-13 13:33 | Outpatient (REF) | payer MEDICARE, MEDICAID, SELFPAY ==
[2025-03-13 15:54] LABS: Glucose Negative (Negative)
[2025-03-13 16:02] LABS: RBC 0-2 HPF (0-2)
[2025-03-13 16:03] LABS: C & S Indicated? No
== END 2025-03-13 13:34 | disposition home or self-care (01) ==
LOC: NCHCN 13:33
PROVIDERS: PCP Physician Assistant; Visit Provider Physician Assistant
DX: N12 Tubulo-interstitial nephritis, not specified as acute or chronic (principal)
CPT/HCPCS: 81003; 81015